=== PATIENT | male | born 1955 | race Caucasian/White ===

== ENCOUNTER → 2019-03-19 | Day surgery (SDC) | payer OTHER ==
[2019-03-15 11:37] LABS: BASOPHILS % 0.5 % (0.0-1.0); EOSINOPHILS # (AUTO) 0.1 (0.0-0.4); EOSINOPHILS % 1.6 % (0.0-6.0); HEMOGLOBIN 15.2 g/dL (14.0-18.0); LYMPHOCYTES % 23.6 % (18.0-39.1); MEAN CORPUSCULAR HEMOGLOBIN 31.8 pg (28-32); MEAN CORPUSCULAR HGB CONC 34.5 g/dL (31-35); MEAN CORPUSCULAR VOLUME 92.1 fL (81-99); MONOCYTES # (AUTO) 0.8 (0.2-0.8); MONOCYTES % 9.4 % (4.4-11.3); NEUTROPHILS # (AUTO) 5.6 (2.1-6.9); NEUTROPHILS % 64.7 % (38.7-80.0); PLATELET COUNT 213 x10e3/uL (140-360); RED BLOOD COUNT 4.78 x10e6/uL (4.3-5.7); RED CELL DISTRIBUTION WIDTH 12.5 % (11.7-14.4)
[~2019-03-19] MED LIST: ALDACTONE25 MG PO; ASPIRIN81 MG PO; CRESTOR10 MG PO; FENTANYL CITRATE/PF 100MCG/2 ML INJ ONE; METOPROLOL SUCC25 MG PO; MIDAZOLAM HCL 2 MG/2 ML VIAL ONE; PROPOFOL IV EMULSION 10 MG/ML 50 ML VIAL ONE; WARFARIN SODIUM6 MG PO
--- OUTSIDE RECORDS SUMMARY | 2019-03-19 07:07 | XMS REPORT ---
Author Author Admin, Index Organization [facility] Address Unknown Phone Unavailable Allergies, Adverse Reactions, Alerts Allergy Name Reaction Description Start Date Severity Status Provider No Known Allergies Nani Franco [employer] Conditions or Problems Problem Name Problem Code Onset Date Status Entry Date Provider Comment Standard Description Annotate Staghorn renal calculus 592.0 Active Darin Frye MD Calculus of kidney left side, impassable, outside CT, advised f/u with Urologist Hyperuricemia 790.6 Active Bryon Bruner MD (res) Other abnormal blood chemistry Rheumatoid factor, positive 790.99 Active Bryon Bruner MD (res) Other nonspecific findings on examination of blood BMI 33.0-33.9 Active Radha Lai MD Body Mass Index 33.0-33.9, adult Encounter for screening for other suspected endocrine disorder Active Radha Lai MD Hx of disorder, tobacco use V15.82 Active Radha Lai MD Personal history of tobacco use Hx of gout NOS V12.2 Active Radha Lai MD Personal history of endocrine, metabolic, and immunity disorders Hx of thyroidectomy V45.79 Active Radha Lai MD Other acquired absence of organ Joint pain, hand 719.44 Active Radha Lai MD Pain in joint involving hand Obesity Active Radha Lai MD Obesity, unspecified Restless leg syndrome 333.94 Active Radha Lai MD Restless legs syndrome (RLS) Screening for other and unspecified cardiovascular conditions V81.2 Active Radha Lai MD Screening for other and unspecified cardiovascular conditions Medication List Medication Instructions Start Date Stop Date Generic Name NDC Status Provider Patient Instruction FAMOTIDINE 20 MG ORAL TABLET one tablet by mouth daily FAMOTIDINE 20 MG ORAL TABLET 203995 FAMOTIDINE Inactive INDOMETHACIN 50 MG ORAL CAPSULE 1 tablet by mouth 3 times a day as needed INDOMETHACIN 50 MG ORAL CAPSULE 810430 INDOMETHACIN Inactive PREDNISONE 10 MG ORAL TABLET Take 2 tab By Mouth daily for x 5 days, 1 tab By Mouth daily x 5 days, 1/2 tab by Mouth daily x 5 days PREDNISONE 10 MG ORAL TABLET 095612 PREDNISONE Inactive FAMOTIDINE 20 MG ORAL TABLET one tablet by mouth daily FAMOTIDINE 33374825652 No Longer Active Darin Frye MD Active INDOMETHACIN 50 MG ORAL CAPSULE 1 tablet by mouth 3 times a day as needed INDOMETHACIN 80031237948 No Longer Active Darin Frye MD Active PREDNISONE 10 MG ORAL TABLET Take 2 tab By Mouth daily for x 5 days, 1 tab By Mouth daily x 5 days, 1/2 tab by Mouth daily x 5 days PREDNISONE 68126461048 No Longer Active Nayeli Dunham MD (res) Active Vital Signs Date Name Value Unit Range Description blood pressure, diastolic, second observation 74 mm[Hg] BP crisostomo blood pressure, diastolic 74 mm[Hg] BP crisostomo blood pressure, systolic, second observation 118 mm[Hg] BP sys blood pressure, systolic 118 mm[Hg] BP sys height E&M 72 [in_us] Bdy height pulse rate E&M 78 /min Heart rate respiratory rate E&M 16 /min Resp rate temperature E&M 98.7 [degF] Body temperature weight E&M 248 [lb_av] Weight Measured blood pressure, diastolic 82 mm[Hg] BP crisostomo blood pressure, systolic 127 mm[Hg] BP sys height E&M 72 [in_us] Bdy height pulse rate E&M 87 /min Heart rate respiratory rate E&M 16 /min Resp rate temperature E&M 98.4 [degF] Body temperature weight E&M 239.20 [lb_av] Weight Measured blood pressure, diastolic, second observation 86 mm[Hg] BP crisostomo blood pressure, diastolic 86 mm[Hg] BP crisostomo blood pressure, systolic, second observation 133 mm[Hg] BP sys blood pressure, systolic 133 mm[Hg] BP sys height E&M 72 [in_us] Bdy height pulse rate E&M 75 /min Heart rate pulse rate #2 78 Heart rate respiratory rate E&M 21 /min Resp rate temperature E&M 98.4 [degF] Body temperature weight E&M 245.60 [lb_av] Weight Measured Diagnostic Results Date Name Value Unit Range Description Lab Report: Comp. Metabolic Panel (14), Lipid Panel, TSH, Rheumatoid Art ... - Chemistry uric acid, serum 10.3 mg/dL 3.7-8.6 calcium, serum 9.5 mg/dL 8.7-10.2 urea nitrogen, blood 10 mg/dL 6-24 urea nitrogen/creatinine ratio, serum 11 9-20 Lab Report: Comp. Metabolic Panel (14), Lipid Panel, TSH, Rheumatoid Art ... - Serology rheumatoid factor 42.1 [iU]/mL 0.0-13.9 Lab Report: Comp. Metabolic Panel (14), Lipid Panel, TSH, Rheumatoid Art ... - Genetics/fertility eGFR if 101 mL/min/1.73m2 >59 Lab Report: Comp. Metabolic Panel (14), Lipid Panel, TSH, Rheumatoid Art ... - Chemistry creatinine, serum 0.95 mg/dL 0.76-1.27 chloride, serum 102 mmol/L 96-106 triglyceride, serum, fasting 223 mg/dL 0-149 Estimated Glomerular Filtration Rate (calc) 87 mL/min/1.73m2 >59 carbon dioxide, venous blood 25 mmol/L 18-29 protein, total, serum 7.5 g/dL 6.0-8.5 sodium, serum 140 mmol/L 594-933 5161/03/20 HDL cholesterol, serum 40 mg/dL >39 Lab Report: Comp. Metabolic Panel (14), Lipid Panel, TSH, Rheumatoid Art ... - Hematology erythrocyte sedimentation rate 2 mm/h 0-30 Lab Report: Comp. Metabolic Panel (14), Lipid Panel, TSH, Rheumatoid Art ... - Chemistry albumin/globulin ratio, serum 1.5 1.2-2.2 alkaline phosphatase, serum 87 U/L 39-117 alanine aminotransferase (SGPT), serum 23 U/L 0-44 LDL cholesterol, serum 132 mg/dL 0-99 cholesterol, serum 217 mg/dL 006-246 5425/03/20 bilirubin, serum, total 0.3 mg/dL 0.0-1.2 potassium, serum 4.7 mmol/L 3.5-5.2 blood glucose, random 92 mg/dL 65-99 globulin, serum 3.0 1.5-4.5 aspartate aminotransferase (SGOT), serum 15 U/L 0-40 thyroid stimulating hormone, serum 1.490 u[iU]/mL 0.450-4.500 albumin, serum 4.5 g/dL 3.5-5.5 very low density lipoproteins 45 mg/dL 5-40 Encounters Date Encounter Provider Code Facility 18:00:24 CDT Est Patient Exp Problem - 40024 Darin Frye MD CPT-40002 [facility] 16:26:07 CDT Est Patient Exp Problem - 99397 Nayeli Dunham MD (res) CPT-74108 [facility] 11:41:25 CDT New Patient Detailed - 65836 Bryon Bruner MD (res) CPT-35206 [facility] Procedures Code Procedure Name Date Entry Date Standard Description CPT-76711 Glucose Stick 11:41:29 CDT
--- OUTSIDE RECORDS SUMMARY | 2019-03-19 07:07 | XMS REPORT ---
Author Author [facility] Address Unknown Phone Unavailable Care Team Providers Care Vice Investigator Name Role Phone JUAN M GONSALEZ Unavailable Unavailable JUAN LUIS VYAS Unavailable Unavailable LAW KAY Unavailable Unavailable Problems This patient has no known problems. Allergies, Adverse Reactions, Alerts This patient has no known allergies or adverse reactions. Medications This patient has no known medications. Results Test Description Test Time Test Comments Text Results Atomic Results Result Comments ANAEROBIC CULTURE 2019-01-17 19:50:00 CULTURE (BEAKER) (test ditt=5298) <1+ Propionibacterium acnes SURGICALLY OBTAINED CULTURE + GRAM [id number] 11:41:00* Test Item Value Reference Range Comments CULTURE (BEAKER) (test dbwc=8893) No growth GRAM STAIN RESULT (BEAKER) (test lqkw=9050) No WBCs GRAM STAIN RESULT (BEAKER) (test ivcw=237873) No organisms seen BASIC METABOLIC [id number] 09:12:00* Test Item Value Reference Range Comments SODIUM (BEAKER) (test yvkj=188) 139 meq/L 136-145 POTASSIUM (BEAKER) (test shhn=696) 3.4 meq/L 3.5-5.1 CHLORIDE (BEAKER) (test lppk=468) 105 meq/L 98-107 CO2 (BEAKER) (test befe=674) 26 meq/L 22-29 BLOOD UREA NITROGEN (BEAKER) (test jbcz=165) 8 mg/dL 7-21 CREATININE (BEAKER) (test hcgu=022) 1.04 mg/dL 0.57-1.25 GLUCOSE RANDOM (BEAKER) (test zxfy=504) 87 mg/dL 70-105 CALCIUM (BEAKER) (test pieh=050) 8.6 mg/dL 8.4-10.2 EGFR (BEAKER) (test tdyx=1493) 73 mL/min/1.73 sq m ESTIMATED GFR IS NOT ACCURATE CREATININE CLEARANCE IN PREDICTING GLOMERULAR FILTRATION RATE. ESTIMATED GFR IS NOT APPLICABLE FOR DIALYSIS PATIENTS. HEMOGLOBIN AND [id number] 06:34:00* Test Item Value Reference Range Comments HEMOGLOBIN (BEAKER) (test edit=756) 12.8 GM/DL 13.7-17.5 HEMATOCRIT (BEAKER) (test tqyt=360) 37.8 % 40.1-51.0 PROTHROMBIN TIME/[id number] 06:33:00* Test Item Value Reference Range Comments PROTIME (BEAKER) (test gesj=288) 14.4 seconds 11.9-14.2 INR (BEAKER) (test jbkw=144) 1.2 <=5.9 Effective 10/03/2018: PT Reference Range ChangeNew: 11.9-14.2 Previous: 11.7-14. 7RECOMMENDED COUMADIN/WARFARIN INR THERAPY RANGESSTANDARD DOSE: 2.0-3.0 Include s: PROPHYLAXIS for venous thrombosis, systemic embolization; TREATMENT for venou s thrombosis and/or pulmonary embolus.HIGH RISK: Target INR is 2.5-3.5 for patie nts wiht mechanical heart valves.BASIC METABOLIC [id number] 07:57:00* Test Item Value Reference Range Comments SODIUM (BEAKER) (test ymhj=643) 142 meq/L 136-145 POTASSIUM (BEAKER) (test pitc=132) 3.7 meq/L 3.5-5.1 CHLORIDE (BEAKER) (test zusl=402) 108 meq/L 98-107 CO2 (BEAKER) (test mztz=652) 23 meq/L 22-29 BLOOD UREA NITROGEN (BEAKER) (test dzxb=452) 10 mg/dL 7-21 CREATININE (BEAKER) (test ksgl=170) 1.02 mg/dL 0.57-1.25 GLUCOSE RANDOM (BEAKER) (test ghnz=941) 91 mg/dL 70-105 CALCIUM (BEAKER) (test miis=041) 8.7 mg/dL 8.4-10.2 EGFR (BEAKER) (test cfoo=7140) 74 mL/min/1.73 sq m ESTIMATED GFR IS NOT ACCURATE CREATININE CLEARANCE IN PREDICTING GLOMERULAR FILTRATION RATE. ESTIMATED GFR IS NOT APPLICABLE FOR DIALYSIS PATIENTS. PROTHROMBIN TIME/[id number] 06:21:00* Test Item Value Reference Range Comments PROTIME (BEAKER) (test vouk=736) 13.9 seconds 11.9-14.2 INR (BEAKER) (test hpjw=665) 1.1 <=5.9 Effective 10/03/2018: PT Reference Range ChangeNew: 11.9-14.2 Previous: 11.7-14. 7RECOMMENDED COUMADIN/WARFARIN INR THERAPY RANGESSTANDARD DOSE: 2.0-3.0 Include s: PROPHYLAXIS for venous thrombosis, systemic embolization; TREATMENT for venou s thrombosis and/or pulmonary embolus.HIGH RISK: Target INR is 2.5-3.5 for patie nts [facility] mechanical heart valves.HEMOGLOBIN AND [id number] 06:12:00* Test Item Value Reference Range Comments HEMOGLOBIN (BEAKER) (test ycrj=781) 12.4 GM/DL 13.7-17.5 HEMATOCRIT (BEAKER) (test olos=457) 38.2 % 40.1-51.0 PROTHROMBIN TIME/[id number] 17:21:00* Test Item Value Reference Range Comments PROTIME (BEAKER) (test fntv=704) 13.3 seconds 11.9-14.2 INR (BEAKER) (test yqgk=161) 1.1 <=5.9 Effective 10/03/2018: PT Reference Range ChangeNew: 11.9-14.2 Previous: 11.7-14. 7RECOMMENDED COUMADIN/WARFARIN INR THERAPY RANGESSTANDARD DOSE: 2.0-3.0 Include s: PROPHYLAXIS for venous thrombosis, systemic embolization; TREATMENT for venou s thrombosis and/or pulmonary embolus.HIGH RISK: Target INR is 2.5-3.5 for patie [facility] mechanical heart valves.CT, ABDOMEN - PELVIS, RENAL STONE EVAL, WITHOUT IV [id number] 08:54:00Reason for exam:->POSTOP PCNL 3FINAL REPORT CT abdomen and pelvis without contrast History: Flank pain, status post lithotripsy Comparison: none Technique: serial axial imaging was performed without intravenous contrast as per departmental protocol. Multiplanar images are reconstructed and reviewed when indicated. This CT e xamination is performed using one or more of the following dose reduction techni ques: Automated exposure control, adjustment of the mA and /or kV according to p atient size, and/or use of iterative reconstruction technique. Findings:Evaluat ion limited by lack of intravenous contrast. Bilateral lower lobe dependent at electasis. Grossly unremarkable appearance of unenhanced liver, gallbladder, ventura creas, spleen, and adrenal glands. There are foci of air surrounding the left kidney, consistent with history of recent intervention. A left ureteral stent ap pears appropriately positioned. No calcifications are seen along the stent cours e. Mild residual left hydronephrosis. Areas of hyperattenuation within the super ior aspect of the left renal collecting system are consistent with blood product s related to recent procedure. No urinary calculus is identified. A Taylor estelle ter decompresses the bladder. No small or large bowel obstruction. No apparent bowel wall thickening. No findings to indicate acute appendicitis. No free fl uid or adenopathy. No aggressive osseous lesion. Impression: 1. Post surgical changes related to recent left-sided lithotripsy and ureteral stent placement. T he ureteral stent appears appropriately position.2. Mild residual left hydroneph rosis.3. No urinary calculus is visualized. Signed: Bj Watsonort Danuta ified Date/Time: 01/09/2019 08:54:36 Reading Location: [facility] Diagnostic Imaging Reading Room - [place] [id number] Electronically signed by: BJ WATSON MD o n 01/09/2019 08:54 AM MELODY DEJESUS IN OR/30 MINUTE [id number] 06:48:00 Reason for exam:->PCNLFINAL REPORT A fluoroscopic unit was utilized for a procedure performed in the operating room. No interpretation was requested. Please refer to the operative report regarding findings. Please refer to PACS for patient radiation dose information. Signed: JR Mackenzie Robert MDReport Verified Date/Time: 01/09/2019 06:48:27 Reading Location: [facility] C013 Neuro Reading Room C METABOLIC [id number] 04:45:00* Test Item Value Reference Range Comments SODIUM (BEAKER) (test aikf=707) 140 meq/L 136-145 POTASSIUM (BEAKER) (test gjal=211) 4.1 meq/L 3.5-5.1 CHLORIDE (BEAKER) (test zhxr=219) 108 meq/L 98-107 CO2 (BEAKER) (test fwgb=247) 23 meq/L 22-29 BLOOD UREA NITROGEN (BEAKER) (test mjtm=321) 10 mg/dL 7-21 CREATININE (BEAKER) (test jeth=936) 1.18 mg/dL 0.57-1.25 GLUCOSE RANDOM (BEAKER) (test xlsq=089) 135 mg/dL 70-105 CALCIUM (BEAKER) (test uthp=573) 8.5 mg/dL 8.4-10.2 EGFR (BEAKER) (test wylm=5308) 63 mL/min/1.73 sq m ESTIMATED GFR IS NOT ACCURATE CREATININE CLEARANCE IN PREDICTING GLOMERULAR FILTRATION RATE. ESTIMATED GFR IS NOT APPLICABLE FOR DIALYSIS PATIENTS. HEMOGLOBIN AND [id number] 04:28:00* Test Item Value Reference Range Comments HEMOGLOBIN (BEAKER) (test hzsi=312) 13.7 GM/DL 13.7-17.5 HEMATOCRIT (BEAKER) (test cvsu=903) 40.9 % 40.1-51.0 BASIC METABOLIC [id number] 18:52:00* Test Item Value Reference Range Comments SODIUM (BEAKER) (test zegy=778) 140 meq/L 136-145 POTASSIUM (BEAKER) (test plrl=827) 4.1 meq/L 3.5-5.1 CHLORIDE (BEAKER) (test rcob=600) 110 meq/L 98-107 CO2 (BEAKER) (test qtra=339) 23 meq/L 22-29 BLOOD UREA NITROGEN (BEAKER) (test ocnb=962) 9 mg/dL 7-21 CREATININE (BEAKER) (test gibn=626) 1.12 mg/dL 0.57-1.25 GLUCOSE RANDOM (BEAKER) (test avot=326) 107 mg/dL 70-105 CALCIUM (BEAKER) (test yymt=315) 8.3 mg/dL 8.4-10.2 EGFR (BEAKER) (test iceq=2729) 67 mL/min/1.73 sq m ESTIMATED GFR IS NOT ACCURATE CREATININE CLEARANCE IN PREDICTING GLOMERULAR FILTRATION RATE. ESTIMATED GFR IS NOT APPLICABLE FOR DIALYSIS PATIENTS. HEMOGLOBIN AND [id number] 18:30:00* Test Item Value Reference Range Comments HEMOGLOBIN (BEAKER) (test uwoj=416) 14.9 GM/DL 13.7-17.5 HEMATOCRIT (BEAKER) (test nuxw=425) 44.7 % 40.1-51.0 POCT-GLUCOSE [id number] 18:08:00* Test Item Value Reference Range Comments POC-GLUCOSE METER (BEAKER) (test gabm=0248) 117 mg/dL 70-110 TESTED AT [facility] [address] [facility] [address] RAD, CHEST, 1 VIEW, NON [id number] 17:35:00Reason for exam:->status post PCNL Iintraop)Should this be performed at the bedside?->YesFINAL REPORT TECHNIQUE: Frontal view of the chest. INDICATION: 63-year-old man status post PCNL. COMPARISON: Chest radiographs 04/28/2018. FINDINGS: LINES/TUBES: The tip of an endotracheal tube tip terminates approximately 5.5 cm above the harmeet. LUNGS: Low lung volumes. No consolidation or pulmonary edema. PLEURA: No pneumothorax or significant pleural effusion. Unchanged biapical pleural thickening. HEART AND MEDIASTINUM: The cardiomediastinal silhouette appears prominent, at least in part due to AP technique and low lung volumes. SOFT TISSUES AND BONES: Unremarkable. IMPRESSION:No acute cardiopulmonary a bnormalities. Signed: Jacob Macedo MDRepjess Verified Date/Time: 01/08/2019 1 7:35:32 Reading Location: [address] Consult Reading Room Electronically si gned by: JACOB MACEDO MD on 01/08/2019 05:35 PM URINE [id number] 10:58:00* Test Item Value Reference Range Comments CULTURE (BEAKER) (test mcps=5269) No growth BASIC METABOLIC [id number] 05:31:00* Test Item Value Reference Range Comments SODIUM (BEAKER) (test xxbm=417) 141 meq/L 136-145 POTASSIUM (BEAKER) (test igpd=792) 3.7 meq/L 3.5-5.1 CHLORIDE (BEAKER) (test qccg=624) 110 meq/L 98-107 CO2 (BEAKER) (test gviv=935) 26 meq/L 22-29 BLOOD UREA NITROGEN (BEAKER) (test nfks=475) 9 mg/dL 7-21 CREATININE (BEAKER) (test ulld=148) 0.92 mg/dL 0.57-1.25 GLUCOSE RANDOM (BEAKER) (test xyeg=915) 101 mg/dL 70-105 CALCIUM (BEAKER) (test nyil=895) 8.2 mg/dL 8.4-10.2 EGFR (BEAKER) (test ypwj=5580) 84 mL/min/1.73 sq m ESTIMATED GFR IS NOT ACCURATE CREATININE CLEARANCE IN PREDICTING GLOMERULAR FILTRATION RATE. ESTIMATED GFR IS NOT APPLICABLE FOR DIALYSIS PATIENTS. [id number] 05:22:00* Test Item Value Reference Range Comments PARTIAL THROMBOPLASTIN TIME (BEAKER) (test qkxw=085) 89.2 seconds 22.5-36.0 CBC W/PLT COUNT & AUTO [id number] 05:14:00* Test Item Value Reference Range Comments WHITE BLOOD CELL COUNT (BEAKER) (test bjqj=532) 8.4 K/ L 3.5-10.5 RED BLOOD CELL COUNT (BEAKER) (test eqzk=350) 4.11 M/ L 4.63-6.08 HEMOGLOBIN (BEAKER) (test xmvh=555) 13.1 GM/DL 13.7-17.5 HEMATOCRIT (BEAKER) (test amku=651) 39.0 % 40.1-51.0 MEAN CORPUSCULAR VOLUME (BEAKER) (test jfzo=201) 94.9 fL 79.0-92.2 MEAN CORPUSCULAR HEMOGLOBIN (BEAKER) (test tiad=808) 31.9 pg 25.7-32.2 MEAN CORPUSCULAR HEMOGLOBIN CONC (BEAKER) (test gvuz=254) 33.6 GM/DL 32.3-36.5 RED CELL DISTRIBUTION WIDTH (BEAKER) (test oyxr=116) 12.1 % 11.6-14.4 PLATELET COUNT (BEAKER) (test uvra=701) 176 K/CU MM 150-450 MEAN PLATELET VOLUME (BEAKER) (test iuvy=401) 10.3 fL 9.4-12.4 NUCLEATED RED BLOOD CELLS (BEAKER) (test glcm=278) 0 /100 WBC 0-0 NEUTROPHILS RELATIVE PERCENT (BEAKER) (test mjrv=041) 66 % LYMPHOCYTES RELATIVE PERCENT (BEAKER) (test hthq=429) 23 % MONOCYTES RELATIVE PERCENT (BEAKER) (test nqym=844) 8 % EOSINOPHILS RELATIVE PERCENT (BEAKER) (test ljwh=927) 2 % BASOPHILS RELATIVE PERCENT (BEAKER) (test jsvo=874) 0 % NEUTROPHILS ABSOLUTE COUNT (BEAKER) (test alca=151) 5.55 K/ L 1.78-5.38 LYMPHOCYTES ABSOLUTE COUNT (BEAKER) (test pozn=555) 1.92 K/ L 1.32-3.57 MONOCYTES ABSOLUTE COUNT (BEAKER) (test rhjy=247) 0.71 K/ L 0.30-0.82 EOSINOPHILS ABSOLUTE COUNT (BEAKER) (test fwdd=955) 0.20 K/ L 0.04-0.54 BASOPHILS ABSOLUTE COUNT (BEAKER) (test fnfz=549) 0.03 K/ L 0.01-0.08 IMMATURE GRANULOCYTES-RELATIVE PERCENT (BEAKER) (test dvdg=0062) 0 % 0-1 [id number] 20:00:00* Test Item Value Reference Range Comments PARTIAL THROMBOPLASTIN TIME (BEAKER) (test bxap=982) 89.4 seconds 22.5-36.0 [id number] 13:04:00* Test Item Value Reference Range Comments PARTIAL THROMBOPLASTIN TIME (BEAKER) (test gsvm=879) 105.9 seconds 22.5-36.0 [id number] 06:56:00* Test Item Value Reference Range Comments PARTIAL THROMBOPLASTIN TIME (BEAKER) (test duok=112) 90.8 seconds 22.5-36.0 [id number] 00:15:00* Test Item Value Reference Range Comments PARTIAL THROMBOPLASTIN TIME (BEAKER) (test hjij=985) 66.6 seconds 22.5-36.0 6 hours after starting heparin infusion and as indicated per sliding scaleAPTT 2019-01-06 17:52:00* Test Item Value Reference Range Comments PARTIAL THROMBOPLASTIN TIME (BEAKER) (test qdkq=889) 29.6 seconds 22.5-36.0 Prior to initiating heparinCBC (HEMOGRAM ONLY)2019-01-06 17:43:00* Test Item Value Reference Range Comments WHITE BLOOD CELL COUNT (BEAKER) (test glur=229) 10.3 K/ L 3.5-10.5 RED BLOOD CELL COUNT (BEAKER) (test stbw=600) 4.63 M/ L 4.63-6.08 HEMOGLOBIN (BEAKER) (test dcao=654) 14.9 GM/DL 13.7-17.5 HEMATOCRIT (BEAKER) (test dugm=351) 43.6 % 40.1-51.0 MEAN CORPUSCULAR VOLUME (BEAKER) (test hubi=258) 94.2 fL 79.0-92.2 MEAN CORPUSCULAR HEMOGLOBIN (BEAKER) (test savn=213) 32.2 pg 25.7-32.2 MEAN CORPUSCULAR HEMOGLOBIN CONC (BEAKER) (test mpet=331) 34.2 GM/DL 32.3-36.5 RED CELL DISTRIBUTION WIDTH (BEAKER) (test sone=606) 11.9 % 11.6-14.4 PLATELET COUNT (BEAKER) (test nhwr=582) 206 K/CU MM 150-450 MEAN PLATELET VOLUME (BEAKER) (test ridc=893) 10.0 fL 9.4-12.4 NUCLEATED RED BLOOD CELLS (BEAKER) (test lsdv=981) 0 /100 WBC 0-0 POCT-LACTIC ACID, [id number] 14:16:00* Test Item Value Reference Range Comments POC-LACTIC ACID, VENOUS (BEAKER) (test ugaj=0879) 0.9 mmol/L 0.9-1.7 TESTED AT [facility] [address] [facility] [address] URINALYSIS W/ [id number] 13:45:00* Test Item Value Reference Range Comments COLOR (BEAKER) (test rdok=780) Yellow CLARITY (BEAKER) (test ndzr=682) Clear SPECIFIC GRAVITY UA (BEAKER) (test pcmz=588) 1.012 1.001-1.035 PH UA (BEAKER) (test zzyt=763) 5.5 5.0-8.0 PROTEIN UA (BEAKER) (test dmqg=036) Negative Negative GLUCOSE UA (BEAKER) (test xcsb=890) Negative Negative KETONES UA (BEAKER) (test gpol=044) Negative Negative BILIRUBIN UA (BEAKER) (test vkwl=604) Negative Negative BLOOD UA (BEAKER) (test egcv=691) Small Negative NITRITE UA (BEAKER) (test wval=617) Negative Negative LEUKOCYTE ESTERASE UA (BEAKER) (test kzno=717) Negative Negative UROBILINOGEN UA (BEAKER) (test sxzm=866) 0.2 mg/dL 0.2-1.0 RBC UA (BEAKER) (test soss=288) 20 /HPF WBC UA (BEAKER) (test ukwh=037) < /HPF MUCUS (BEAKER) (test jxov=5688) Occasional SOURCE(BEAKER) (test dvai=1496) BASIC METABOLIC [id number] 13:26:00* Test Item Value Reference Range Comments SODIUM (BEAKER) (test xjvk=024) 139 meq/L 136-145 POTASSIUM (BEAKER) (test ktmd=975) 3.8 meq/L 3.5-5.1 CHLORIDE (BEAKER) (test sebd=353) 106 meq/L 98-107 CO2 (BEAKER) (test pjyz=176) 24 meq/L 22-29 BLOOD UREA NITROGEN (BEAKER) (test zgyw=063) 15 mg/dL 7-21 CREATININE (BEAKER) (test ehoo=567) 1.18 mg/dL 0.57-1.25 GLUCOSE RANDOM (BEAKER) (test xwyw=739) 143 mg/dL 70-105 CALCIUM (BEAKER) (test nnmm=910) 9.4 mg/dL 8.4-10.2 EGFR (BEAKER) (test aayg=7527) 63 mL/min/1.73 sq m ESTIMATED GFR IS NOT ACCURATE CREATININE CLEARANCE IN PREDICTING GLOMERULAR FILTRATION RATE. ESTIMATED GFR IS NOT APPLICABLE FOR DIALYSIS PATIENTS. PT/[id number] 13:21:00* Test Item Value Reference Range Comments PROTIME (BEAKER) (test oakm=949) 15.1 seconds 11.9-14.2 INR (BEAKER) (test cucq=806) 1.3 <=5.9 PARTIAL THROMBOPLASTIN TIME (BEAKER) (test zkkm=984) 29.8 seconds 22.5-36.0 Effective 10/03/2018: PT Reference Range ChangeNew: 11.9-14.2 Previous: 11.7-14. 7RECOMMENDED COUMADIN/WARFARIN INR THERAPY RANGESSTANDARD DOSE: 2.0-3.0 Include s: PROPHYLAXIS for venous thrombosis, systemic embolization; TREATMENT for venou s thrombosis and/or pulmonary embolus.HIGH RISK: Target INR is 2.5-3.5 for patie nts wiht mechanical heart valves.CBC W/PLT COUNT & AUTO [id number] 13:12:00* Test Item Value Reference Range Comments WHITE BLOOD CELL COUNT (BEAKER) (test ciru=533) 8.3 K/ L 3.5-10.5 RED BLOOD CELL COUNT (BEAKER) (test rnud=156) 4.68 M/ L 4.63-6.08 HEMOGLOBIN (BEAKER) (test wwwh=831) 15.0 GM/DL 13.7-17.5 HEMATOCRIT (BEAKER) (test htlx=238) 43.0 % 40.1-51.0 MEAN CORPUSCULAR VOLUME (BEAKER) (test cddl=998) 91.9 fL 79.0-92.2 MEAN CORPUSCULAR HEMOGLOBIN (BEAKER) (test sujs=372) 32.1 pg 25.7-32.2 MEAN CORPUSCULAR HEMOGLOBIN CONC (BEAKER) (test kvcu=188) 34.9 GM/DL 32.3-36.5 RED CELL DISTRIBUTION WIDTH (BEAKER) (test tftu=411) 11.9 % 11.6-14.4 PLATELET COUNT (BEAKER) (test jvzf=018) 219 K/CU MM 150-450 MEAN PLATELET VOLUME (BEAKER) (test bbdd=325) 10.0 fL 9.4-12.4 NUCLEATED RED BLOOD CELLS (BEAKER) (test soxq=373) 0 /100 WBC 0-0 NEUTROPHILS RELATIVE PERCENT (BEAKER) (test slil=732) 71 % LYMPHOCYTES RELATIVE PERCENT (BEAKER) (test ikmm=067) 20 % MONOCYTES RELATIVE PERCENT (BEAKER) (test peuc=986) 7 % EOSINOPHILS RELATIVE PERCENT (BEAKER) (test zeql=518) 1 % BASOPHILS RELATIVE PERCENT (BEAKER) (test rvvn=653) 0 % NEUTROPHILS ABSOLUTE COUNT (BEAKER) (test eqws=876) 5.87 K/ L 1.78-5.38 LYMPHOCYTES ABSOLUTE COUNT (BEAKER) (test nkcy=691) 1.66 K/ L 1.32-3.57 MONOCYTES ABSOLUTE COUNT (BEAKER) (test kjqa=706) 0.58 K/ L 0.30-0.82 EOSINOPHILS ABSOLUTE COUNT (BEAKER) (test pipj=262) 0.12 K/ L 0.04-0.54 BASOPHILS ABSOLUTE COUNT (BEAKER) (test wjpf=380) 0.03 K/ L 0.01-0.08 IMMATURE GRANULOCYTES-RELATIVE PERCENT (BEAKER) (test ycss=1875) 0 % 0-1 BASIC METABOLIC [id number] 07:12:00* Test Item Value Reference Range Comments SODIUM (BEAKER) (test ogbc=675) 138 meq/L 136-145 POTASSIUM (BEAKER) (test odqy=439) 3.8 meq/L 3.5-5.1 CHLORIDE (BEAKER) (test voam=876) 110 meq/L 98-107 CO2 (BEAKER) (test bqyf=362) 22 meq/L 22-29 BLOOD UREA NITROGEN (BEAKER) (test pqva=016) 10 mg/dL 7-21 CREATININE (BEAKER) (test qbzq=988) 0.83 mg/dL 0.57-1.25 GLUCOSE RANDOM (BEAKER) (test kbgp=843) 102 mg/dL 70-105 CALCIUM (BEAKER) (test ccjg=377) 8.9 mg/dL 8.4-10.2 EGFR (BEAKER) (test uhxd=7632) 95 mL/min/1.73 sq m ESTIMATED GFR IS NOT ACCURATE CREATININE CLEARANCE IN PREDICTING GLOMERULAR FILTRATION RATE. ESTIMATED GFR IS NOT APPLICABLE FOR DIALYSIS PATIENTS. PROTHROMBIN TIME/[id number] 06:30:00* Test Item Value Reference Range Comments PROTIME (BEAKER) (test ynbw=318) 14.2 seconds 11.7-14.7 INR (BEAKER) (test cpru=950) 1.1 <=5.9 RECOMMENDED COUMADIN/WARFARIN INR THERAPY RANGESSTANDARD DOSE: 2.0 - 3.0 Inclu kaiser: PROPHYLAXIS for venous thrombosis, systemic embolization; TREATMENT for shaista ous thrombosis and/or pulmonary embolus.HIGH RISK: Target INR is 2.5-3.5 for pat ients with mechanical heart valves.[id number] 06:30:00* Test Item Value Reference Range Comments PARTIAL THROMBOPLASTIN TIME (BEAKER) (test vgmd=967) 35.7 seconds 22.5-36.0 PLATELET [id number] 06:12:00* Test Item Value Reference Range Comments PLATELET COUNT (BEAKER) (test zxpi=837) 195 K/CU MM 150-450 Baseline and daily starting prior to initiation of heparin infusionCBC (HEMOGRAM ONLY)2018-08-10 06:12:00* Test Item Value Reference Range Comments WHITE BLOOD CELL COUNT (BEAKER) (test lrpv=268) 6.1 K/ L 3.5-10.5 RED BLOOD CELL COUNT (BEAKER) (test cckt=898) 3.63 M/ L 4.63-6.08 HEMOGLOBIN (BEAKER) (test mnry=037) 11.6 GM/DL 13.7-17.5 HEMATOCRIT (BEAKER) (test tzbp=652) 34.2 % 40.1-51.0 MEAN CORPUSCULAR VOLUME (BEAKER) (test xmtw=916) 94.2 fL 79.0-92.2 MEAN CORPUSCULAR HEMOGLOBIN (BEAKER) (test kiba=637) 32.0 pg 25.7-32.2 MEAN CORPUSCULAR HEMOGLOBIN CONC (BEAKER) (test sdjr=217) 33.9 GM/DL 32.3-36.5 RED CELL DISTRIBUTION WIDTH (BEAKER) (test zluk=170) 12.9 % 11.6-14.4 PLATELET COUNT (BEAKER) (test aefk=389) 195 K/CU MM 150-450 MEAN PLATELET VOLUME (BEAKER) (test fixm=667) 10.0 fL 9.4-12.4 NUCLEATED RED BLOOD CELLS (BEAKER) (test zsgo=799) 0 /100 WBC 0-0 [id number] 00:54:00* Test Item Value Reference Range Comments PARTIAL THROMBOPLASTIN TIME (BEAKER) (test kias=384) 28.3 seconds 22.5-36.0 Prior to initiating ppihnagRBYI-[id number] 14:17:00* Test Item Value Reference Range Comments ACTIVATED CLOTTING TIME (BEAKER) (test nnjl=937) 351 sec TESTED AT [facility] [address] [place] [id number] BASIC METABOLIC [id number] 08:05:00* Test Item Value Reference Range Comments SODIUM (BEAKER) (test zomp=781) 141 meq/L 136-145 POTASSIUM (BEAKER) (test rshj=366) 3.9 meq/L 3.5-5.1 CHLORIDE (BEAKER) (test ctek=493) 109 meq/L 98-107 CO2 (BEAKER) (test nroj=368) 26 meq/L 22-29 BLOOD UREA NITROGEN (BEAKER) (test sifz=335) 13 mg/dL 7-21 CREATININE (BEAKER) (test ihjj=190) 0.88 mg/dL 0.57-1.25 GLUCOSE RANDOM (BEAKER) (test wvhp=758) 93 mg/dL 70-105 CALCIUM (BEAKER) (test qxvc=515) 9.9 mg/dL 8.4-10.2 EGFR (BEAKER) (test ofdj=4332) 88 mL/min/1.73 sq m ESTIMATED GFR IS NOT ACCURATE CREATININE CLEARANCE IN PREDICTING GLOMERULAR FILTRATION RATE. ESTIMATED GFR IS NOT APPLICABLE FOR DIALYSIS PATIENTS. PROTHROMBIN TIME/[id number] 08:00:00* Test Item Value Reference Range Comments PROTIME (BEAKER) (test lbgr=308) 13.9 seconds 11.7-14.7 INR (BEAKER) (test fsqi=570) 1.1 <=5.9 RECOMMENDED COUMADIN/WARFARIN INR THERAPY RANGESSTANDARD DOSE: 2.0 - 3.0 Inclu kaiser: PROPHYLAXIS for venous thrombosis, systemic embolization; TREATMENT for shaista ous thrombosis and/or pulmonary embolus.HIGH RISK: Target INR is 2.5-3.5 for pat ients with mechanical heart valves.Within 24 hours, if on CoumadinCBC W/PLT COUNT & AUTO [id number] 07:51:00* Test Item Value Reference Range Comments WHITE BLOOD CELL COUNT (BEAKER) (test zvtq=757) 5.4 K/ L 3.5-10.5 RED BLOOD CELL COUNT (BEAKER) (test fqxv=323) 3.82 M/ L 4.63-6.08 HEMOGLOBIN (BEAKER) (test jywg=602) 12.2 GM/DL 13.7-17.5 HEMATOCRIT (BEAKER) (test zpcn=201) 36.5 % 40.1-51.0 MEAN CORPUSCULAR VOLUME (BEAKER) (test vner=434) 95.5 fL 79.0-92.2 MEAN CORPUSCULAR HEMOGLOBIN (BEAKER) (test urao=903) 31.9 pg 25.7-32.2 MEAN CORPUSCULAR HEMOGLOBIN CONC (BEAKER) (test xjkc=741) 33.4 GM/DL 32.3-36.5 RED CELL DISTRIBUTION WIDTH (BEAKER) (test xequ=306) 12.8 % 11.6-14.4 PLATELET COUNT (BEAKER) (test pkgk=298) 200 K/CU MM 150-450 MEAN PLATELET VOLUME (BEAKER) (test rpyc=205) 9.8 fL 9.4-12.4 NUCLEATED RED BLOOD CELLS (BEAKER) (test sapz=033) 0 /100 WBC 0-0 NEUTROPHILS RELATIVE PERCENT (BEAKER) (test lxtk=335) 64 % LYMPHOCYTES RELATIVE PERCENT (BEAKER) (test lkuv=987) 20 % MONOCYTES RELATIVE PERCENT (BEAKER) (test wzei=905) 11 % EOSINOPHILS RELATIVE PERCENT (BEAKER) (test citr=603) 4 % BASOPHILS RELATIVE PERCENT (BEAKER) (test fqna=567) 1 % NEUTROPHILS ABSOLUTE COUNT (BEAKER) (test jiva=405) 3.49 K/ L 1.78-5.38 LYMPHOCYTES ABSOLUTE COUNT (BEAKER) (test ycsl=720) 1.08 K/ L 1.32-3.57 MONOCYTES ABSOLUTE COUNT (BEAKER) (test iaot=415) 0.57 K/ L 0.30-0.82 EOSINOPHILS ABSOLUTE COUNT (BEAKER) (test qdnk=785) 0.24 K/ L 0.04-0.54 BASOPHILS ABSOLUTE COUNT (BEAKER) (test epsd=943) 0.03 K/ L 0.01-0.08 IMMATURE GRANULOCYTES-RELATIVE PERCENT (BEAKER) (test qgbx=3058) 0 % 0-1 BLOOD [id number] 07:01:00* Test Item Value Reference Range Comments CULTURE (BEAKER) (test wdys=6547) No growth in 5 days BLOOD [id number] 07:01:00* Test Item Value Reference Range Comments CULTURE (BEAKER) (test melu=5887) No growth in 5 days URINE [id number] 08:46:00* Test Item Value Reference Range Comments CULTURE (BEAKER) (test lamu=3332) No growth URIC [id number] 15:53:00* Test Item Value Reference Range Comments URIC ACID (BEAKER) (test hkxt=185) 7.7 mg/dL 2.6-7.2 [id number] 13:38:00* Test Item Value Reference Range Comments PARTIAL THROMBOPLASTIN TIME (BEAKER) (test ilpi=003) 89.0 seconds 22.5-36.0 [id number] 06:52:00* Test Item Value Reference Range Comments MAGNESIUM (BEAKER) (test gzvz=631) 1.9 mg/dL 1.6-2.6 BASIC METABOLIC [id number] 06:52:00* Test Item Value Reference Range Comments SODIUM (BEAKER) (test prpa=349) 136 meq/L 136-145 POTASSIUM (BEAKER) (test kdyc=517) 4.1 meq/L 3.5-5.1 CHLORIDE (BEAKER) (test eymm=767) 104 meq/L 98-107 CO2 (BEAKER) (test euqc=116) 23 meq/L 22-29 BLOOD UREA NITROGEN (BEAKER) (test lczx=679) 10 mg/dL 7-21 CREATININE (BEAKER) (test wrpl=304) 0.97 mg/dL 0.57-1.25 GLUCOSE RANDOM (BEAKER) (test otpk=240) 106 mg/dL 70-105 CALCIUM (BEAKER) (test bibw=033) 9.7 mg/dL 8.4-10.2 EGFR (BEAKER) (test qfzy=0771) 79 mL/min/1.73 sq m ESTIMATED GFR IS NOT ACCURATE CREATININE CLEARANCE IN PREDICTING GLOMERULAR FILTRATION RATE. ESTIMATED GFR IS NOT APPLICABLE FOR DIALYSIS PATIENTS. [id number] 06:48:00* Test Item Value Reference Range Comments PARTIAL THROMBOPLASTIN TIME (BEAKER) (test qcmd=619) 107.0 seconds 22.5-36.0 While on warfarin.PROTHROMBIN TIME/[id number] 06:42:00* Test Item Value Reference Range Comments PROTIME (BEAKER) (test haxv=783) 14.3 seconds 11.7-14.7 INR (BEAKER) (test vgob=901) 1.1 <=5.9 RECOMMENDED COUMADIN/WARFARIN INR THERAPY RANGESSTANDARD DOSE: 2.0 - 3.0 Inclu kaiser: PROPHYLAXIS for venous thrombosis, systemic embolization; TREATMENT for shaista ous thrombosis and/or pulmonary embolus.HIGH RISK: Target INR is 2.5-3.5 for pat ients with mechanical heart valves.While on warfarin.CBC (HEMOGRAM ONLY) 2018-04-29 06:26:00* Test Item Value Reference Range Comments WHITE BLOOD CELL COUNT (BEAKER) (test pifu=915) 12.6 K/ L 3.5-10.5 RED BLOOD CELL COUNT (BEAKER) (test qarg=901) 4.06 M/ L 4.63-6.08 HEMOGLOBIN (BEAKER) (test izqc=293) 12.7 GM/DL 13.7-17.5 HEMATOCRIT (BEAKER) (test xkga=339) 37.8 % 40.1-51.0 MEAN CORPUSCULAR VOLUME (BEAKER) (test dlzw=684) 93.1 fL 79.0-92.2 MEAN CORPUSCULAR HEMOGLOBIN (BEAKER) (test oavt=027) 31.3 pg 25.7-32.2 MEAN CORPUSCULAR HEMOGLOBIN CONC (BEAKER) (test qcxb=707) 33.6 GM/DL 32.3-36.5 RED CELL DISTRIBUTION WIDTH (BEAKER) (test ljvb=208) 11.9 % 11.6-14.4 PLATELET COUNT (BEAKER) (test gzyh=603) 208 K/CU MM 150-450 MEAN PLATELET VOLUME (BEAKER) (test hwve=513) 9.4 fL 9.4-12.4 NUCLEATED RED BLOOD CELLS (BEAKER) (test mgcj=891) 0 /100 WBC 0-0 [id number] 01:05:00* Test Item Value Reference Range Comments PARTIAL THROMBOPLASTIN TIME (BEAKER) (test ddii=372) 79.1 seconds 22.5-36.0 [id number] 18:19:00* Test Item Value Reference Range Comments PARTIAL THROMBOPLASTIN TIME (BEAKER) (test xjus=390) 49.6 seconds 22.5-36.0 RAD, CHEST, 2 [id number] 16:50:00Reason for exam:->FeverShould this be performed at the bedside?->YesFINAL REPORT Chest, two views and right foot. CLINICAL HISTORY: Fever. COMPARISON STUDY: April 27, 2018. FINDINGS: The cardiac size is unremarkable. No focal pulmonary opacity, pleural effusion or pneumothorax is seen. Degenerative changes are noted. Three views of the right foot demonstrate no evidence of fracture, malalignment or effusion. A calcaneal spur is seen. Degenerative changes are seen. IMPRESSION:1. No acute abnormality seen. Signed: Thanh Valladares Verified Date/Time: 04/28/2018 16:50:00 Reading Location: [address] Ortho Consult Reading Room , FOOT, MIN 3 VIEWS, [id number] 16:50:00Reason for exam:->Rt big toe swelling, ? goutFINAL REPORT Chest, two views and right foot. CLINICAL HISTORY: Fever. COMPARISON STUDY: April 27, 2018. FINDINGS: The cardiac size is unremarkable. No focal pulmonary opacity, pleural effusion or pneumothorax is seen. Degenerative changes are noted. Three views of the right foot demonstrate no evidence of fracture, malalignment or effusion. A calcaneal spur is seen. Degenerative changes are seen. IMPRESSION:1. No acute abnormality seen. Signed: Thanh Valladares Verified Date/Time: 04/28/2018 16:50:00 Reading Location: [facility] C013 Ortho Consult Reading Room 2018-04-28 11:49:00* Test Item Value Reference Range Comments PARTIAL THROMBOPLASTIN TIME (BEAKER) (test ocah=404) 48.8 seconds 22.5-36.0 PROTHROMBIN TIME/[id number] 11:48:00* Test Item Value Reference Range Comments PROTIME (BEAKER) (test fldf=083) 13.8 seconds 11.7-14.7 INR (BEAKER) (test zaao=594) 1.1 <=5.9 RECOMMENDED COUMADIN/WARFARIN INR THERAPY RANGESSTANDARD DOSE: 2.0 - 3.0 Inclu kaiser: PROPHYLAXIS for venous thrombosis, systemic embolization; TREATMENT for shaista ous thrombosis and/or pulmonary embolus.HIGH RISK: Target INR is 2.5-3.5 for pat ients with mechanical heart valves.BASIC METABOLIC [id number] 06:09:00* Test Item Value Reference Range Comments SODIUM (BEAKER) (test xylj=957) 136 meq/L 136-145 POTASSIUM (BEAKER) (test kdvv=026) 3.7 meq/L 3.5-5.1 CHLORIDE (BEAKER) (test fxlu=694) 104 meq/L 98-107 CO2 (BEAKER) (test yokg=296) 22 meq/L 22-29 BLOOD UREA NITROGEN (BEAKER) (test mqod=337) 8 mg/dL 7-21 CREATININE (BEAKER) (test vgkj=009) 0.90 mg/dL 0.57-1.25 GLUCOSE RANDOM (BEAKER) (test vsvz=843) 108 mg/dL 70-105 CALCIUM (BEAKER) (test wssp=250) 8.6 mg/dL 8.4-10.2 EGFR (BEAKER) (test nnvn=3168) 86 mL/min/1.73 sq m ESTIMATED GFR IS NOT ACCURATE CREATININE CLEARANCE IN PREDICTING GLOMERULAR FILTRATION RATE. ESTIMATED GFR IS NOT APPLICABLE FOR DIALYSIS PATIENTS. CBC (HEMOGRAM ONLY)2018-04-28 05:22:00* Test Item Value Reference Range Comments WHITE BLOOD CELL COUNT (BEAKER) (test mban=848) 10.8 K/ L 3.5-10.5 RED BLOOD CELL COUNT (BEAKER) (test jlms=917) 3.86 M/ L 4.63-6.08 HEMOGLOBIN (BEAKER) (test bzba=617) 12.3 GM/DL 13.7-17.5 HEMATOCRIT (BEAKER) (test xwjf=234) 36.2 % 40.1-51.0 MEAN CORPUSCULAR VOLUME (BEAKER) (test iuxu=987) 93.8 fL 79.0-92.2 MEAN CORPUSCULAR HEMOGLOBIN (BEAKER) (test atxt=630) 31.9 pg 25.7-32.2 MEAN CORPUSCULAR HEMOGLOBIN CONC (BEAKER) (test cjwa=691) 34.0 GM/DL 32.3-36.5 RED CELL DISTRIBUTION WIDTH (BEAKER) (test xwpr=172) 12.2 % 11.6-14.4 PLATELET COUNT (BEAKER) (test izbd=859) 202 K/CU MM 150-450 MEAN PLATELET VOLUME (BEAKER) (test dbtz=281) 9.8 fL 9.4-12.4 NUCLEATED RED BLOOD CELLS (BEAKER) (test uacs=557) 0 /100 WBC 0-0 [id number] 04:39:00* Test Item Value Reference Range Comments PARTIAL THROMBOPLASTIN TIME (BEAKER) (test yluv=856) 42.9 seconds 22.5-36.0 CBC W/PLT COUNT & AUTO [id number] 17:13:00* Test Item Value Reference Range Comments WHITE BLOOD CELL COUNT (BEAKER) (test poox=399) 11.3 K/ L 3.5-10.5 RED BLOOD CELL COUNT (BEAKER) (test gmft=983) 3.96 M/ L 4.63-6.08 HEMOGLOBIN (BEAKER) (test qwxy=414) 12.4 GM/DL 13.7-17.5 HEMATOCRIT (BEAKER) (test oipk=941) 36.7 % 40.1-51.0 MEAN CORPUSCULAR VOLUME (BEAKER) (test qmav=226) 92.7 fL 79.0-92.2 MEAN CORPUSCULAR HEMOGLOBIN (BEAKER) (test lxmc=068) 31.3 pg 25.7-32.2 MEAN CORPUSCULAR HEMOGLOBIN CONC (BEAKER) (test vyux=312) 33.8 GM/DL 32.3-36.5 RED CELL DISTRIBUTION WIDTH (BEAKER) (test mads=627) 12.1 % 11.6-14.4 PLATELET COUNT (BEAKER) (test kcbq=361) 206 K/CU MM 150-450 MEAN PLATELET VOLUME (BEAKER) (test xsqt=301) 9.7 fL 9.4-12.4 NUCLEATED RED BLOOD CELLS (BEAKER) (test fjfo=383) 0 /100 WBC 0-0 NEUTROPHILS RELATIVE PERCENT (BEAKER) (test vlvd=125) 76 % LYMPHOCYTES RELATIVE PERCENT (BEAKER) (test mkxv=129) 12 % MONOCYTES RELATIVE PERCENT (BEAKER) (test bvya=690) 9 % EOSINOPHILS RELATIVE PERCENT (BEAKER) (test mvit=725) 2 % BASOPHILS RELATIVE PERCENT (BEAKER) (test xyoh=093) 0 % NEUTROPHILS ABSOLUTE COUNT (BEAKER) (test iqdk=103) 8.59 K/ L 1.78-5.38 LYMPHOCYTES ABSOLUTE COUNT (BEAKER) (test skxs=555) 1.40 K/ L 1.32-3.57 MONOCYTES ABSOLUTE COUNT (BEAKER) (test mxsb=774) 1.05 K/ L 0.30-0.82 EOSINOPHILS ABSOLUTE COUNT (BEAKER) (test xrdp=747) 0.22 K/ L 0.04-0.54 BASOPHILS ABSOLUTE COUNT (BEAKER) (test htka=860) 0.01 K/ L 0.01-0.08 IMMATURE GRANULOCYTES-RELATIVE PERCENT (BEAKER) (test asph=2541) 0 % 0-1 [id number] 10:42:00* Test Item Value Reference Range Comments ACTIVATED CLOTTING TIME (BEAKER) (test glll=019) 120 sec TESTED AT [facility] [address] [facility] [address] RAD, CHEST, 1 VIEW, NON [id number] 07:45:00Reason for exam:->IABPFINAL REPORT RAD, CHEST, 1 VIEW, NON DEPT INDICATION: IABP COMPARISON: None FINDINGS: Portable frontal view of the chest. IMPRESSION: Support Lines: Intra-aortic balloon pump marker projects over the aortic arch. L ungs and pleura: Lungs are underinflated but clear. There is no pneumothorax or effusion.Heart and mediastinum: Prominence of the cardiac silhouette likely part ially magnified by technique.Additional findings: None. Signed: JR Mackenzie Robert MDReport Verified Date/Time: 04/27/2018 07:45:10 Reading Location: [address] Neuro Reading Room [id number] 07:38:00* Test Item Value Reference Range Comments PARTIAL THROMBOPLASTIN TIME (BEAKER) (test krts=078) 41.4 seconds 22.5-36.0 CBC (HEMOGRAM ONLY)2018-04-27 06:09:00* Test Item Value Reference Range Comments WHITE BLOOD CELL COUNT (BEAKER) (test nuvu=223) 11.1 K/ L 3.5-10.5 RED BLOOD CELL COUNT (BEAKER) (test noio=308) 3.86 M/ L 4.63-6.08 HEMOGLOBIN (BEAKER) (test sief=387) 12.4 GM/DL 13.7-17.5 HEMATOCRIT (BEAKER) (test hhyj=682) 36.4 % 40.1-51.0 MEAN CORPUSCULAR VOLUME (BEAKER) (test mgdf=327) 94.3 fL 79.0-92.2 MEAN CORPUSCULAR HEMOGLOBIN (BEAKER) (test wcnh=381) 32.1 pg 25.7-32.2 MEAN CORPUSCULAR HEMOGLOBIN CONC (BEAKER) (test hvho=965) 34.1 GM/DL 32.3-36.5 RED CELL DISTRIBUTION WIDTH (BEAKER) (test dlyy=838) 12.3 % 11.6-14.4 PLATELET COUNT (BEAKER) (test juma=325) 190 K/CU MM 150-450 MEAN PLATELET VOLUME (BEAKER) (test ejzt=134) 10.1 fL 9.4-12.4 NUCLEATED RED BLOOD CELLS (BEAKER) (test suqn=832) 0 /100 WBC 0-0 [id number] 05:14:00* Test Item Value Reference Range Comments MAGNESIUM (BEAKER) (test vbpc=420) 2.0 mg/dL 1.6-2.6 BASIC METABOLIC [id number] 05:14:00* Test Item Value Reference Range Comments SODIUM (BEAKER) (test oawe=263) 137 meq/L 136-145 POTASSIUM (BEAKER) (test kyjn=627) 3.8 meq/L 3.5-5.1 CHLORIDE (BEAKER) (test tdna=067) 105 meq/L 98-107 CO2 (BEAKER) (test zqxl=131) 24 meq/L 22-29 BLOOD UREA NITROGEN (BEAKER) (test qoba=650) 9 mg/dL 7-21 CREATININE (BEAKER) (test lxav=724) 0.99 mg/dL 0.57-1.25 GLUCOSE RANDOM (BEAKER) (test chfa=198) 119 mg/dL 70-105 CALCIUM (BEAKER) (test yips=621) 9.1 mg/dL 8.4-10.2 EGFR (BEAKER) (test zhju=2333) 77 mL/min/1.73 sq m ESTIMATED GFR IS NOT ACCURATE CREATININE CLEARANCE IN PREDICTING GLOMERULAR FILTRATION RATE. ESTIMATED GFR IS NOT APPLICABLE FOR DIALYSIS PATIENTS. [id number] 00:22:00* Test Item Value Reference Range Comments PARTIAL THROMBOPLASTIN TIME (BEAKER) (test hmnd=543) 40.0 seconds 22.5-36.0 BASIC METABOLIC [id number] 18:48:00* Test Item Value Reference Range Comments SODIUM (BEAKER) (test oohw=862) 137 meq/L 136-145 POTASSIUM (BEAKER) (test xngw=799) 3.8 meq/L 3.5-5.1 CHLORIDE (BEAKER) (test kslz=481) 106 meq/L 98-107 CO2 (BEAKER) (test eisx=809) 23 meq/L 22-29 BLOOD UREA NITROGEN (BEAKER) (test cbnf=175) 8 mg/dL 7-21 CREATININE (BEAKER) (test bggt=249) 0.93 mg/dL 0.57-1.25 GLUCOSE RANDOM (BEAKER) (test ihdw=142) 131 mg/dL 70-105 CALCIUM (BEAKER) (test ooip=136) 9.7 mg/dL 8.4-10.2 EGFR (BEAKER) (test qmvs=9824) 83 mL/min/1.73 sq m ESTIMATED GFR IS NOT ACCURATE CREATININE CLEARANCE IN PREDICTING GLOMERULAR FILTRATION RATE. ESTIMATED GFR IS NOT APPLICABLE FOR DIALYSIS PATIENTS. [id number] 18:05:00* Test Item Value Reference Range Comments PARTIAL THROMBOPLASTIN TIME (BEAKER) (test ivjf=814) 74.0 seconds 22.5-36.0 Prior to initiating heparinPLATELET [id number] 18:02:00* Test Item Value Reference Range Comments PLATELET COUNT (BEAKER) (test jgra=879) 211 K/CU MM 150-450 [id number] 14:56:00* Test Item Value Reference Range Comments ACTIVATED CLOTTING TIME (BEAKER) (test cswu=123) 505 sec TESTED AT [place] [address] [id number] 14:21:00* Test Item Value Reference Range Comments ACTIVATED CLOTTING TIME (BEAKER) (test ircr=055) 703 sec TESTED AT [place] [id number] 14:01:00* Test Item Value Reference Range Comments ACTIVATED CLOTTING TIME (BEAKER) (test wtnp=725) 246 sec TESTED AT [place] [id number] BASIC METABOLIC [id number] 07:49:00* Test Item Value Reference Range Comments SODIUM (BEAKER) (test zfbp=435) 137 meq/L 136-145 POTASSIUM (BEAKER) (test ehgi=185) 3.8 meq/L 3.5-5.1 CHLORIDE (BEAKER) (test nehi=191) 105 meq/L 98-107 CO2 (BEAKER) (test zwka=371) 28 meq/L 22-29 BLOOD UREA NITROGEN (BEAKER) (test oyya=230) 8 mg/dL 7-21 CREATININE (BEAKER) (test whce=830) 0.93 mg/dL 0.57-1.25 GLUCOSE RANDOM (BEAKER) (test xvva=710) 101 mg/dL 70-105 CALCIUM (BEAKER) (test hamh=050) 9.2 mg/dL 8.4-10.2 EGFR (BEAKER) (test tpef=1440) 83 mL/min/1.73 sq m ESTIMATED GFR IS NOT ACCURATE CREATININE CLEARANCE IN PREDICTING GLOMERULAR FILTRATION RATE. ESTIMATED GFR IS NOT APPLICABLE FOR DIALYSIS PATIENTS. PROTHROMBIN TIME/[id number] 07:45:00* Test Item Value Reference Range Comments PROTIME (BEAKER) (test ecbv=943) 14.2 seconds 11.7-14.7 INR (BEAKER) (test pclf=293) 1.1 <=5.9 RECOMMENDED COUMADIN/WARFARIN INR THERAPY RANGESSTANDARD DOSE: 2.0 - 3.0 Inclu kaiser: PROPHYLAXIS for venous thrombosis, systemic embolization; TREATMENT for shaista ous thrombosis and/or pulmonary embolus.HIGH RISK: Target INR is 2.5-3.5 for pat ients with mechanical heart valves.Within 24 hours, if on CoumadinCBC (HEMOGRAM ONLY)2018-04-26 07:34:00* Test Item Value Reference Range Comments WHITE BLOOD CELL COUNT (BEAKER) (test ceri=625) 10.6 K/ L 3.5-10.5 RED BLOOD CELL COUNT (BEAKER) (test bptn=066) 4.27 M/ L 4.63-6.08 HEMOGLOBIN (BEAKER) (test ebwt=529) 13.8 GM/DL 13.7-17.5 HEMATOCRIT (BEAKER) (test stax=658) 40.5 % 40.1-51.0 MEAN CORPUSCULAR VOLUME (BEAKER) (test zubq=591) 94.8 fL 79.0-92.2 MEAN CORPUSCULAR HEMOGLOBIN (BEAKER) (test pfgf=938) 32.3 pg 25.7-32.2 MEAN CORPUSCULAR HEMOGLOBIN CONC (BEAKER) (test gqpc=733) 34.1 GM/DL 32.3-36.5 RED CELL DISTRIBUTION WIDTH (BEAKER) (test rwrf=808) 12.3 % 11.6-14.4 PLATELET COUNT (BEAKER) (test zsuv=045) 203 K/CU MM 150-450 MEAN PLATELET VOLUME (BEAKER) (test pqrf=493) 9.5 fL 9.4-12.4 NUCLEATED RED BLOOD CELLS (BEAKER) (test cwjd=170) 0 /100 WBC 0-0 CT, CTA [id number] 18:27:00Addendum BeginsREPORT STATUS:A Addendum: I agree with the previously described non vascular findings. Signed: Zachary Mark MDReport Verified Date/Time: 04/18/2018 18:27:56 Reading Location: [place] [address] Angio Body Reading RoomAddendum EndsFINAL REPORT CT angiography of the thoracoabdominal aorta and pelvic arteries, 18 April 2018 INDICATION: This is a 62 year old male with a diagnosis of PAD, presents for assessment of the thoracoabdominal aorta. This study is performed in an attempt to avoid an invasive procedure. TECHNIQUE: Spiral acquisition before and during intravenous contrast administration using a GE multidetector CT scanner. Images were obtained before and during the dynamic passage of intravenous contrast material. Multi-planar 3-D volume-rendering reconstruction was performed using an independent workstation interactively by the interpreting physician as well as the 3-D specialist for optimal visualization of the thoracoabdominal aorta, the pelvic arteries as well as its proximal branches. Please refer to the contrast sheet scanned in the EPIC system for the amount and route of contrast given. This exam was performed according to our departmental dose-optimisation programme, which includes automated exposure control, adjustment of the mA and/or kV according to patient size and/or use of iterative reconstruction technique. Dose modulation, iterative reconstruction, and/or weight based adjustment of the mA/kV was utilized to reduce the radiation dose to as low as reasonably achievable. Contrast enhancement is slightly suboptimal in the pelvic level, however, interpretation can be performed, and therefore no further injection was given to minimize radiation and contrast exposure. FINDINGS: VASCULAR:- The central pulmonary artery is normal in rashad susy. There is no evidence of central pulmonary artery embolism. The cardiac shekhar mbers demonstrate normal atrioventricular and ventriculoarterial concordance, an d systemic and pulmonary venous return. Left ventricle is normal in size. No per icardial effusion is identified. However, hypodensity is identified in left vent ricular apex, and tiny calcification is seen in the tip of the left atrial appen dage, suggestive of presence of left ventricular apical thrombus. The acuity of this finding cannot be commented upon. Coronary artery origins are normal and d iffuse coronary artery calcification identified in the mid and distal LAD territ ory. At the juncture of the proximal/mid RCA is likely occluded. Calcification i s seen in the LCx territory. There is scattered calcification seen at the level of the aortic root, with scattered calcification seen at the level of the desce nding thoracic aorta. There is noncalcific atherosclerosis identified at the lev el of the aortic arch, extending into the descending thoracic aorta. The thickne ss of the atheroma, in the proximal descending thoracic aorta, at image 73 is ap proximately 3 mm. The abdominal aorta is also remarkable for scattered calcific and noncalcific atherosclerosis. Overall, no aneurysmal dilation is seen through out the thoracoabdominal aorta. There is no evidence of acute aortic pathology, specifically, there is no dissection, intramural haematoma, or contained rupture . The arch vessel branching pattern is normal and the visualised arch vessels a re widely patent proximally. The left common carotid artery arises from the inno minate artery, common variant. Noncalcific atherosclerosis seen circumferentiall y in the proximal left subclavian artery with only luminal irregularities identi fied. Similar finding is seen in the takeoff of the left common carotid artery a s well as in the innominate artery. Quantitative dimensions of the aorta are as follows: 3.6 x 3.4 cm at the sinuses of Valsalva (the sino-tubular junction is p reserved); 2.9 cm at the proximal ascending thoracic aorta; 3.0 cm at the mid a scending aorta; 2.9 cm at the distal ascending aorta; 2.7 cm at the mid transve rse arch; 2.9 cm at the proximal descending aorta; 2.5 cm at the mid descending aorta; 2.4 cm at the diaphragmatic hiatus. In the abdomen, the aorta measures 2.1 cm at the mesenteric segment; 2.1 cm at the renal segment,; and 1.6 cm at t he aortic bifurcation. The common iliac, external iliac, common femoral, and t he visualized superficial femoral arteries, bilaterally, are widely patent with no obstructive lesion identified; despite slightly suboptimal enhancement. The c oeliac axis, SMA are widely patent. Replaced right hepatic artery is seen, commo n variant. The KANE is patent. There are single left and right renal arteries kody ntified that are widely patent. Single left and right renal veins are seen drain ing normally into the IVC. NON-VASCULAR: The visualised thyroid gland appears un remarkable. The chest wall and mediastinum has no acute abnormalities identified . Small lymph nodes are seen, considered nonspecific in nature. No pericardial e ffusion is identified. In the lung windows, no endobronchial lesion is seen and no pleural effusions identified. Dependent changes are seen in the lung bases. M inimal paraseptal emphysematous changes are identified. Dependent changes are se en in the lung bases. Some subsegmental atelectatic changes are noted. Tiny nonc alcified juxtapleural nodular opacity is seen in the peripheral aspect of the le ft lung, image 92, measure at most 2 mm in diameter, considered nonspecific in n ature due to its small size, less than 6 mm. Overall, no suspicious pulmonary no dule is identified. In the abdomen, the liver and spleen appears unremarkable. T he liver edge is smooth. No abnormal enhancing structure is identified. The gall bladder, and adrenal glands are unremarkable. Some fatty infiltration of the ventura creas is identified. No acute renal pathology is seen and no hydronephrosis or p erirenal fluid collections identified. Minimal cortical scarring is noted. In th e precontrast series, large stones identified in the left renal pelvis, image 72 , measure 3.1 x 1.7 cm in diameter. No other stone is identified in the urinary system. No hydroureter is appreciated. Bowel is not well assessed by CT angiogra phy as enteric contrast is not given. No obvious bowel dilation is identified. B ilateral fat-containing inguinal hernia is noted. The appendix appears unremarka ble. The prostate gland is minimally prominent punctate calcification identified . The bladder is not distended. No free air or free fluid seen abdomen and pelvi s and no significant retroperitoneal adenopathy is identified. In the bony windo ws, no acute bony pathology is seen. Only minimal degenerative changes are noted . CONCLUSIONS: 1. No aortic aneurysm or ectasia is identified in the entire th oracoabdominal aorta. There is no evidence of acute aortic pathology, specifical ly, there is no dissection, intramural hematoma, or contained rupture. However, there is scattered calcifications seen in the ascending thoracic aorta, and in the transverse arch, descending thoracic aorta. Besides the presence of scattere d calcific atherosclerosis, there is also a degree of mild circumferential nonca lcific atherosclerosis identified extending into the takeoff of the arch vessel. No hanging atherosclerosis is seen. Mild atherosclerosis is identified in the a bdominal aorta. Quantitative dimension of the thoracoabdominal are as described above. 2. Left ventricular thrombus is identified in the apex, and at image 164, and measures 3.3 x 1.6 cm in diameter in the axial orientation, and there c ould be mild aneurysmal dilation in the left ventricular apex, there will be bet ter assessed by echocardiogram as only single phase CT data set was acquired in this current examination. Acuity of this finding difficult to comment upon. Cor onary artery calcification is identified in the LAD territory. In addition, at t he juncture of the proximal/mid RCA, there is likely focal occlusion identified. 3. No acute pulmonary pathology. Mild paraseptal emphysematous changes. No e vidence of central pulmonary artery embolism. 4. Other findings as described a amber, including large stone in the left renal pelvis. 5. An addendum will be dictated by the Cytotechnologist Supervisor Radiologist regarding the nonvascular findings. Baylee d: Jesus Palmer Verified Date/Time: 04/18/2018 14:17:22 Reading Lo cation: [facility] B1 P047 Cardiology MRI , CTA, [id number] 18:27:00Addendum BeginsREPORT STATUS:A Addendum: I agree with the previously described non vascular findings. Signed: Zachary Mark Ve rified Date/Time: 04/18/2018 18:27:56 Reading Location: [facility] P048 Angio Body Reading RoomAddendum EndsFINAL REPORT CT angiography of t he thoracoabdominal aorta and pelvic arteries, 18 April 2018 INDICATION: Miky tubbs is a 62 year old male with a diagnosis of PAD, presents for assessment of the thoracoabdominal aorta. This study is performed in an attempt to avoid an invas lee procedure. TECHNIQUE: Spiral acquisition before and during intravenous contr ast administration using a [employer] multidetector CT scanner. Images were obtained bef ore and during the dynamic passage of intravenous contrast material. Multi-plan ar 3-D volume-rendering reconstruction was performed using an independent workst ation interactively by the interpreting physician as well as the 3-D specialist for optimal visualization of the thoracoabdominal aorta, the pelvic arteries as well as its proximal branches. Please refer to the contrast sheet scanned in the EPIC system for the amount and route of contrast given. This exam was performed according to our departmental dose-optimisation programme, which includes autom ated exposure control, adjustment of the mA and/or kV according to patient size and/or use of iterative reconstruction technique. Dose modulation, iterative rec onstruction, and/or weight based adjustment of the mA/kV was utilized to reduce the radiation dose to as low as reasonably achievable. Contrast enhancement is s lightly suboptimal in the pelvic level, however, interpretation can be performed , and therefore no further injection was given to minimize radiation and contras t exposure. FINDINGS: VASCULAR:- The central pulmonary artery is normal in rashad susy. There is no evidence of central pulmonary artery embolism. The cardiac shekhar mbers demonstrate normal atrioventricular and ventriculoarterial concordance, an d systemic and pulmonary venous return. Left ventricle is normal in size. No per icardial effusion is identified. However, hypodensity is identified in left vent ricular apex, and tiny calcification is seen in the tip of the left atrial appen dage, suggestive of presence of left ventricular apical thrombus. The acuity of this finding cannot be commented upon. Coronary artery origins are normal and d iffuse coronary artery calcification identified in the mid and distal LAD territ ory. At the juncture of the proximal/mid RCA is likely occluded. Calcification i s seen in the LCx territory. There is scattered calcification seen at the level of the aortic root, with scattered calcification seen at the level of the desce nding thoracic aorta. There is noncalcific atherosclerosis identified at the lev el of the aortic arch, extending into the descending thoracic aorta. The thickne ss of the atheroma, in the proximal descending thoracic aorta, at image 73 is ap proximately 3 mm. The abdominal aorta is also remarkable for scattered calcific and noncalcific atherosclerosis. Overall, no aneurysmal dilation is seen through out the thoracoabdominal aorta. There is no evidence of acute aortic pathology, specifically, there is no dissection, intramural haematoma, or contained rupture . The arch vessel branching pattern is normal and the visualised arch vessels a re widely patent proximally. The left common carotid artery arises from the inno minate artery, common variant. Noncalcific atherosclerosis seen circumferentiall y in the proximal left subclavian artery with only luminal irregularities identi fied. Similar finding is seen in the takeoff of the left common carotid artery a s well as in the innominate artery. Quantitative dimensions of the aorta are as follows: 3.6 x 3.4 cm at the sinuses of Valsalva (the sino-tubular junction is p reserved); 2.9 cm at the proximal ascending thoracic aorta; 3.0 cm at the mid a scending aorta; 2.9 cm at the distal ascending aorta; 2.7 cm at the mid transve rse arch; 2.9 cm at the proximal descending aorta; 2.5 cm at the mid descending aorta; 2.4 cm at the diaphragmatic hiatus. In the abdomen, the aorta measures 2.1 cm at the mesenteric segment; 2.1 cm at the renal segment,; and 1.6 cm at t he aortic bifurcation. The common iliac, external iliac, common femoral, and t he visualized superficial femoral arteries, bilaterally, are widely patent with no obstructive lesion identified; despite slightly suboptimal enhancement. The c oeliac axis, SMA are widely patent. Replaced right hepatic artery is seen, commo n variant. The KANE is patent. There are single left and right renal arteries kody ntified that are widely patent. Single left and right renal veins are seen drain ing normally into the IVC. NON-VASCULAR: The visualised thyroid gland appears un remarkable. The chest wall and mediastinum has no acute abnormalities identified . Small lymph nodes are seen, considered nonspecific in nature. No pericardial e ffusion is identified. In the lung windows, no endobronchial lesion is seen and no pleural effusions identified. Dependent changes are seen in the lung bases. M inimal paraseptal emphysematous changes are identified. Dependent changes are se en in the lung bases. Some subsegmental atelectatic changes are noted. Tiny nonc alcified juxtapleural nodular opacity is seen in the peripheral aspect of the le ft lung, image 92, measure at most 2 mm in diameter, considered nonspecific in n ature due to its small size, less than 6 mm. Overall, no suspicious pulmonary no dule is identified. In the abdomen, the liver and spleen appears unremarkable. T he liver edge is smooth. No abnormal enhancing structure is identified. The gall bladder, and adrenal glands are unremarkable. Some fatty infiltration of the ventura creas is identified. No acute renal pathology is seen and no hydronephrosis or p erirenal fluid collections identified. Minimal cortical scarring is noted. In th e precontrast series, large stones identified in the left renal pelvis, image 72 , measure 3.1 x 1.7 cm in diameter. No other stone is identified in the urinary system. No hydroureter is appreciated. Bowel is not well assessed by CT angiogra phy as enteric contrast is not given. No obvious bowel dilation is identified. B ilateral fat-containing inguinal hernia is noted. The appendix appears unremarka ble. The prostate gland is minimally prominent punctate calcification identified . The bladder is not distended. No free air or free fluid seen abdomen and pelvi s and no significant retroperitoneal adenopathy is identified. In the bony windo ws, no acute bony pathology is seen. Only minimal degenerative changes are noted . CONCLUSIONS: 1. No aortic aneurysm or ectasia is identified in the entire th oracoabdominal aorta. There is no evidence of acute aortic pathology, specifical ly, there is no dissection, intramural hematoma, or contained rupture. However, there is scattered calcifications seen in the ascending thoracic aorta, and in the transverse arch, descending thoracic aorta. Besides the presence of scattere d calcific atherosclerosis, there is also a degree of mild circumferential nonca lcific atherosclerosis identified extending into the takeoff of the arch vessel. No hanging atherosclerosis is seen. Mild atherosclerosis is identified in the a bdominal aorta. Quantitative dimension of the thoracoabdominal are as described above. 2. Left ventricular thrombus is identified in the apex, and at image 164, and measures 3.3 x 1.6 cm in diameter in the axial orientation, and there c ould be mild aneurysmal dilation in the left ventricular apex, there will be bet ter assessed by echocardiogram as only single phase CT data set was acquired in this current examination. Acuity of this finding difficult to comment upon. Cor onary artery calcification is identified in the LAD territory. In addition, at t he juncture of the proximal/mid RCA, there is likely focal occlusion identified. 3. No acute pulmonary pathology. Mild paraseptal emphysematous changes. No e vidence of central pulmonary artery embolism. 4. Other findings as described a amber, including large stone in the left renal pelvis. 5. An addendum will be dictated by the Cytotechnologist Supervisor Radiologist regarding the nonvascular findings. 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 Comparison: None. Clinical History: 62 years old Male with known LV dysfunction and apical thrombus with evidence of significant coronary artery disease, involving 100% CT of mid LAD in 90% mid RCA stenosis, here for further evaluation for planning revascularization. Indication: This study is performed to assess myocardial damage, viability, and to quantitate left ventricular and valvular function. Technique: [employer] Achieva 1.5 [place] MRI scanner.* Turbo spin echo and gradient echo imaging for anatomic definition.* Dynamic cine i maging for cardiac chamber, wall-motion, and valvular analysis.* Flow quantifica tion sequences for hemodynamics.* T2 weighted STIR imaging (with triple IR prepa ration) for edema analysis.* Delayed gadolinium-enhancement analysis (inversion recovery gradient echo sequence) after injection of gadolinium-chelate (15 cc of Gadavist). RESULT: Potential study limitations: None. CHEST: The chest wall is unremarkable. The mediastinum appears normal. No significant adenopathy is i dentified. This study was not optimized to assess the lungs however, limited im aging reveals no gross abnormalities. The pulmonary arteries appear normal (main PA: 2.9 cm). The pericardium is unremarkable. VASCULAR:The aortic root is symme tric and normal in dimension. The sinotubular junction is preserved. The ascend ing thoracic aorta and aortic arch: Normal in course, caliber and contour. The arch vessel branching pattern demonstrates a common trunk of the innominate and left common carotid artery. The imaged arch branch vessels are patent proximal ly. The descending thoracic aorta: Normal in course, caliber and contour. Ther e is no acute aortic pathology, such as dissection, intramural hematoma, or cont ained rupture. CARDIAC CHAMBERS:The cardiac chambers have normal atrioventricula r and ventriculoarterial concordance, as well as normal systemic and pulmonary v enous return. Normal interatrial septum The interventricular septum appears int act. The cardiac chamber sizes are notable for mild biatrial enlargement. Left Ventricle:The left ventricle is mildly enlarged, and has mildly reduced systolic function. The left ventricular myocardium is normal in thickness. There are reg ional wall motion abnormalities involving, the apical septal, apical inferior, w hich are thinned and akinetic. The LV apex is aneurysmal and dyskinetic GDU=786 cc (normal 115-198 cc); UIQq=896 cc/m2 (normal 63-98 cc/m2).USU=833 cc (normal 30-75 cc); ESVi=61 cc/m2 (normal 16-38 cc/m2).Stroke hxawof=946 cc (normal 76- 132 cc); SVi=45 cc/m2 (normal 41-65 cc/m2).LVEF=43 % (normal 55-75%).Cardiac Output=7.1 l/min.; Cardiac Index=3.0 l/min/m2.LV agtv=465 gm (normal 108-184 gm ); LVMi=63 gm/m2 (normal 58-91 gm/m2). Delayed-enhancement imaging reveals del ayed-enhancement in an ischemic pattern. Specifically, transmural pattern invol ving the apical inferior, apical septal, and LV apex. Subendocardial pattern of delayed enhancement involving the apical anterior and lateral altamirano. Apical left ventricular thrombus is identified, measuring 3.0 x 1.9 cm. Scar score=14/68 (s alise-quantitative scar assessment was performed on a standard 17-segments model a s follows:0=no scar, 1=1-25% transmurality, 2=26-50% transmurality, 3=51-75% tra nsmurality, 4=greater than 75%; total scar score is generated out of a maximum o f 68 points). Transmurality index=3/17 (represents the number of segments with g reater than or equal to 51% transmurality). Right Ventricle:The right ventricle is normal in size and shape, and has normal systolic function on qualitative ass essment, where imaged. VALVES:The mitral valve is mildly thickened. There is tri vial imaged mitral regurgitation. The aortic valve is trileaflet. There is no i renita aortic regurgitation.Flow quantification through the ascending aorta:*Forw matteo volume: 109 cc/beat*Reverse volume: 3 cc/beat*Net forward volume: 106 cc/kareem t*Aortic regurgitant fraction: 3 % The tricuspid valve is structurally normal. There is trivial imaged tricuspid regurgitation. Flow quantification sequences t hrough the SVC and right upper lobe pulmonary vein reveal normal flow patterns c onsistent with normal right and normal left atrial pressures. ABDOMEN:Limited i maging through the upper abdomen reveals no abnormalities of the imaged organs. IMPRESSION: The constellation of findings is most suggestive of a dilated, isch emic cardiomyopathy with normal viability in present all of the arterial territo maninder except for the apical septal, apical inferior and LV apex. 1. Mildly dilate d left ventricle with mildly reduced left ventricular systolic function. (LVEF: 43%, LVEDVi: 106 cc/m2). There are regional wall motion abnormalities involving, the apical septal, apical inferior and LV apex, which are thinned and akinetic. 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 Apical left ventricular thrombus is i dentified, measuring 3.0 x 1.9 cm. 2. Delayed-enhancement imaging reveals delaye d-enhancement in an ischemic pattern. Specifically, transmural pattern of DHE i nvolving the apical inferior, apical septal, and LV apex. Subendocardial pattern of delayed enhancement involving the apical anterior and lateral altamirano. Scar sc ore=. Transmurality index=3/17. 3. Normal right ventricular size and systol ic function, on qualitative assessment. Mild biatrial enlargement. 4. No signifi cant valvular abnormalities. Signed: Law Kay MDReport Verified Date/Santiago e: 12/16/2017 15:42:13 Reading Location: [place] [address] Cardiology MRI Electr onically signed by: LAW KAY MD on 12/16/2017 03:42 PM POCT-CREATININE 2017-12-15 11:43:00* Test Item Value Reference Range Comments POC-CREATININE (BEAKER) (test rlnn=4555) 1.0 mg/dL 0.6-1.3 TESTED AT [facility] [address] [facility] [address] POC-EGFR (BEAKER) (test epyx=4941) 76 mL/min/1.73M2 BASIC METABOLIC [id number] 06:28:00* Test Item Value Reference Range Comments SODIUM (BEAKER) (test eiot=458) 137 meq/L 136-145 POTASSIUM (BEAKER) (test ihac=316) 3.9 meq/L 3.5-5.1 CHLORIDE (BEAKER) (test mdkm=884) 105 meq/L 98-107 CO2 (BEAKER) (test guxv=035) 24 meq/L 22-29 BLOOD UREA NITROGEN (BEAKER) (test mvpt=520) 13 mg/dL 7-21 CREATININE (BEAKER) (test cube=365) 1.05 mg/dL 0.57-1.25 GLUCOSE RANDOM (BEAKER) (test oijy=550) 99 mg/dL 70-105 CALCIUM (BEAKER) (test npwi=368) 9.3 mg/dL 8.4-10.2 EGFR (BEAKER) (test nenq=3496) 72 mL/min/1.73 sq m ESTIMATED GFR IS NOT ACCURATE CREATININE CLEARANCE IN PREDICTING GLOMERULAR FILTRATION RATE. ESTIMATED GFR IS NOT APPLICABLE FOR DIALYSIS PATIENTS. PROTHROMBIN [id number] 06:13:00* Test Item Value Reference Range Comments PROTIME (BEAKER) (test efkg=016) 16.6 seconds 11.7-14.7 INR (BEAKER) (test eisl=924) 1.3 <=5.9 RECOMMENDED COUMADIN/WARFARIN INR THERAPY RANGESSTANDARD DOSE: 2.0 - 3.0 Inclu kaiser: PROPHYLAXIS for venous thrombosis, systemic embolization; TREATMENT for shaista ous thrombosis and/or pulmonary embolus.HIGH RISK: Target INR is 2.5-3.5 for pat ients with mechanical heart valves.Within 24 hours, if on CoumadinCBC W/PLT COUNT & AUTO [id number] 06:06:00* Test Item Value Reference Range Comments WHITE BLOOD CELL COUNT (BEAKER) (test wyzy=838) 9.1 K/ L 3.5-10.5 RED BLOOD CELL COUNT (BEAKER) (test npct=541) 4.24 M/ L 4.63-6.08 HEMOGLOBIN (BEAKER) (test wxvy=966) 13.6 GM/DL 13.7-17.5 HEMATOCRIT (BEAKER) (test jmig=327) 39.2 % 40.1-51.0 MEAN CORPUSCULAR VOLUME (BEAKER) (test rrso=766) 92.5 fL 79.0-92.2 MEAN CORPUSCULAR HEMOGLOBIN (BEAKER) (test pmwj=716) 32.1 pg 25.7-32.2 MEAN CORPUSCULAR HEMOGLOBIN CONC (BEAKER) (test kzku=394) 34.7 GM/DL 32.3-36.5 RED CELL DISTRIBUTION WIDTH (BEAKER) (test tabs=268) 12.0 % 11.6-14.4 PLATELET COUNT (BEAKER) (test dczo=207) 224 K/CU MM 150-450 MEAN PLATELET VOLUME (BEAKER) (test nvov=122) 9.6 fL 9.4-12.4 NUCLEATED RED BLOOD CELLS (BEAKER) (test ebqo=624) 0 /100 WBC 0-0 NEUTROPHILS RELATIVE PERCENT (BEAKER) (test loyi=983) 67 % LYMPHOCYTES RELATIVE PERCENT (BEAKER) (test nike=808) 22 % MONOCYTES RELATIVE PERCENT (BEAKER) (test xuae=450) 8 % EOSINOPHILS RELATIVE PERCENT (BEAKER) (test dagz=957) 2 % BASOPHILS RELATIVE PERCENT (BEAKER) (test zjql=788) 0 % NEUTROPHILS ABSOLUTE COUNT (BEAKER) (test abcd=638) 6.03 K/ L 1.78-5.38 LYMPHOCYTES ABSOLUTE COUNT (BEAKER) (test baop=086) 1.99 K/ L 1.32-3.57 MONOCYTES ABSOLUTE COUNT (BEAKER) (test qfuc=378) 0.75 K/ L 0.30-0.82 EOSINOPHILS ABSOLUTE COUNT (BEAKER) (test ymex=619) 0.20 K/ L 0.04-0.54 BASOPHILS ABSOLUTE COUNT (BEAKER) (test ktjc=386) 0.04 K/ L 0.01-0.08 IMMATURE GRANULOCYTES-RELATIVE PERCENT (BEAKER) (test aqpl=8823) 0 % 0-1
--- OUTSIDE RECORDS SUMMARY | 2019-03-19 07:08 | XMS REPORT | Summary of Care ---
Author Author [facility] Organization [facility] Address Unknown Phone Unavailable Care Team Providers Care Upper Stitcher Name Role Phone Joe WestP PCP Reason for Visit * Reason Comments Cardiology Follow-up Encounter Details Care Team Description Date Type Department Law Carlton MD [address] [place] [address] Cardiology Follow-up 01/22/2019 Office Visit [facility] Cardiology [address] [facility] [address] [place] [address] Allergies No Known Allergiesdocumented as of this encounter (statuses as of 01/26/2019) Medications End Date Status Medication Sig Dispensed Refills Start Date Active famotidine (PEPCID) 20 MG 0 tablet 8 Active aspirin EC 81 MG Take 1 Tab by 100 Tab 0 TBECIndications: Coronary mouth daily. 9 artery disease involving [place] heart without angina pectoris, unspecified vessel or lesion type, Claudication of both lower extremities (HCCode), LV (left ventricular) mural thrombus without OH, PAD (peripheral artery disease) (HCCode) Active predniSONE (DELTASONE) 20 0 MG tablet 9 Active probenecid (BENEMID) 500 as needed. 0 MG tablet 9 Active Enoxaparin Sodium Inject 110 mg 5 Syringe 0 (LOVENOX) 120 MG/0.8ML into the skin 9 SOLN two times daily. Starting 08/06 with your last dose 08/08 in the Morning only. Active BRILINTA 90 MG TABS Take 90 mg by 60 Tab 3 04/02/201 mouth two 9 times daily. Active warfarin (COUMADIN) 7.5 Take 1 Tab by 30 Tab 5 MG tabletIndications: Hx mouth daily. 9 of blood clots Active metoprolol (LOPRESSOR) 25 TAKE 1/2 30 Tab 3 MG tablet (ONE-HALF) 9 TABLET BY MOUTH TWICE DAILY Active warfarin (COUMADIN) 5 MG Take 1 Tab by 30 Tab 5 tabletIndications: Hx of mouth daily. 9 blood clots Active Ascorbic Acid (VITAMIN C Take by 0 OR) mouth. Active Ferrous Odmryrbef-V-Gmbsy Take 65 mg by 0 Acid (IRON-C OR) mouth. Active rosuvastatin (CRESTOR) 10 TAKE 1 TABLET 30 Tab 6 MG tabletIndications: BY MOUTH ONCE 9 Coronary artery disease DAILY involving [place]ut heart without angina pectoris, unspecified vessel or lesion type, Claudication of both lower extremities (HCCode), LV (left ventricular) mural thrombus without [place], PAD (peripheral artery disease) (HCCode) Active spironolactone TAKE 1 TABLET 30 Tab 6 (ALDACTONE) 25 MG BY MOUTH ONCE 9 tabletIndications: DAILY Coronary artery disease involving [place]ut heart without angina pectoris, unspecified vessel or lesion type, LV (left ventricular) mural thrombus without OH Active levofloxacin (LEVAQUIN) Take 1 Tab by 14 Tab 0 500 MG tablet mouth daily. 9 02/11/2019 Active Tamsulosin HCl 0.4 MG Take 0.4 mg 0 CAPS by mouth 9 daily. Active Bismuth Subsalicylate Take by 0 (PEPTO-BISMOL OR) mouth two times daily. Active amoxicillin (AMOXIL) 500 Take 1,000 mg 0 mg capsule by mouth every 12 hours. For 14 days Active pantoprazole (PROTONIX) Take 40 mg by 0 40 MG tablet mouth two times daily. Active metronidazole (FLAGYL) Take 500 mg 0 500 MG tablet by mouth two times daily. documented as of this encounter (statuses as of 01/26/2019) Active Problems Problem Noted Date PAD (peripheral artery disease) (HCCode) 03/21/2018 Staghorn calculus 10/25/2017 Coronary artery disease Kidney stone Mural thrombus of left ventricle following OH (HCCode) documented as of this encounter (statuses as of 01/26/2019) Social History Date Tobacco Use Types Packs/Day Years Used Former Smoker Smokeless Tobacco: Never Used Drinks/Week oz/Week Comments Alcohol Use very seldom Yes Sex Assigned at Date Recorded Not on file Industry Job Start Date Occupation Not on file Not on file Not on file Travel End Travel History Travel Start No recent travel history available. documented as of this encounter Last Filed Vital Signs Reading Time Taken Comments Vital Sign 115/76 01/22/2019 8:23 AM CDT Blood Pressure 74 01/22/2019 8:23 AM CDT Pulse - - Temperature 16 01/22/2019 8:23 AM CDT Respiratory Rate 98% 01/22/2019 8:23 AM CDT Oxygen Saturation - - Inhaled Oxygen Concentration 106.6 kg (235 lb) 01/22/2019 8:23 AM CDT Weight 182.9 cm (6') 01/22/2019 8:23 AM CDT Height 31.87 01/22/2019 8:23 AM CDT Body Mass Index documented in this encounter Progress Notes * Law Carlton MD - 01/22/2019 8:00 AM CDT Chief Complaint Cardiology Follow-up History of Presenting Illness Joss Mcleod is a 63 y.o. male with a hx of staghorn calculus pending daisy gical removal who presents today for hospital follow up after tent placement in August 2018. 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 Reports occ asional LE edema today. He denies chest pain, SULLIV[place], palpitations, dizziness/synco pe. Family hx:father CABG x 3 in his 60's. at 72 from [place]. Social: Stopped smoking tobacco 5 years ago, uses vaporizer 11/23/2017 Today he presents s/p Echo which found an LV thrombus, apical hypokinesis and re duced EF in the 30-34%. He denies symptoms such as chest pain, dyspnea on exerti on, palpitations, LE edema, orthopnea or PND. No hx of OH or related symptoms in the past. 12/21/2017 Over the last couple of weeks he has felt more dizziness on exertion. He feels d reed when getting out of the car. He denies chest pain, BP at home is controlled at 119-125/80 Since wearing life vest he has experienced a rash over his mid and upper back, i t is itchy and hot. It has improved overall with washing vest, and putting aloch ol over it. He denies fevers. 02/20/2018 Joss Mcleod continues to have occasional chest pain and flank pain. He d enies palpitations, shortness of breath, lightheadedness, dizziness, syncope, or thopnea, PND or pedal edema. 11/13/2018 Joss Mcleod has no significant symptoms of chest pain, palpitations, johnny rtness of breath, lightheadedness, dizziness, syncope, orthopnea, PND or pedal e jeremy. - Stopped Brilinta and currently on Aspirin and Warfarin - recent echo showing mildly reduced LV thrombus with stable LV systolic functio n. Today Joss Mcleod has no significant symptoms of chest pain, palpitations, johnny rtness of breath, lightheadedness, dizziness, syncope, orthopnea, PND or pedal e jeremy. S/p Surgically removed Staghorn calculus. Uneventful. Restarted on warfarin with no further episodes of bleeding. Review of Systems Review of Systems Constitution: Negative for fever. Eyes: Negative for blurred vision, visual disturbance and visual halos. Cardiovascular: Positive for chest pain. Negative for claudication, cyanosis, dy spnea on exertion, irregular heartbeat, leg swelling, near-syncope, orthopnea, p alpitations, paroxysmal nocturnal dyspnea and syncope. Respiratory: Negative for cough, shortness of breath and sputum production. Musculoskeletal: Negative for back pain, joint swelling and muscle weakness. Gastrointestinal: Negative for abdominal pain, bowel incontinence, diarrhea and heartburn. Genitourinary: Positive for flank pain. Negative for bladder incontinence, hesit sruthi and urgency. Neurological: Negative for dizziness, focal weakness, headaches, light-headednes s and weakness. Psychiatric/Behavioral: Negative for altered mental status and depression. Past Medical History Past Medical History: Diagnosis Date Coronary artery disease Kidney stone Mural thrombus of left ventricle following OH (HCCode) Past Surgical History Past Surgical History: Procedure Laterality Date HX CORONARY ANGIOPLASTY WITH STENT PLACEMENT HX THYROID SURGERY HX URETER STENT PLACEMENT Family History Family History Problem Relation Name Age of Onset Heart Attack Father Current Outpatient Medications Current Outpatient Medications Medication Sig Dispense Refill amoxicillin (AMOXIL) 500 mg capsule Take 1,000 mg by mouth every 12 hours. F or 14 days Ascorbic Acid (VITAMIN C OR) Take by mouth. aspirin EC 81 MG TBEC Take 1 Tab by mouth daily. 100 Tab 0 Bismuth Subsalicylate (PEPTO-BISMOL OR) Take by mouth two times daily. BRILINTA 90 MG TABS Take 90 mg by mouth two times daily. (Patient not taking : Reported on 11/13/2018) 60 Tab 3 Enoxaparin Sodium (LOVENOX) 120 MG/0.8ML SOLN Inject 110 mg into the skin tw o times daily. Starting 4/ with your last dose 4/3 in the Morning only. 5 Syrin ge 0 famotidine (PEPCID) 20 MG tablet Ferrous Bklvuxeuu-Y-Mjorb Acid (IRON-C OR) Take 65 mg by mouth. levofloxacin (LEVAQUIN) 500 MG tablet Take 1 Tab by mouth daily. (Patient no t taking: Reported on 01/22/2019) 14 Tab 0 metoprolol (LOPRESSOR) 25 MG tablet TAKE 1/2 (ONE-HALF) TABLET BY MOUTH TWIC E DAILY 30 Tab 3 metronidazole (FLAGYL) 500 MG tablet Take 500 mg by mouth two times daily. pantoprazole (PROTONIX) 40 MG tablet Take 40 mg by mouth two times daily. predniSONE (DELTASONE) 20 MG tablet probenecid (BENEMID) 500 MG tablet as needed. rosuvastatin (CRESTOR) 10 MG tablet TAKE 1 TABLET BY MOUTH ONCE DAILY 30 Tab 6 spironolactone (ALDACTONE) 25 MG tablet TAKE 1 TABLET BY MOUTH ONCE DAILY 30 Tab 6 Tamsulosin HCl 0.4 MG CAPS Take 0.4 mg by mouth daily. warfarin (COUMADIN) 5 MG tablet Take 1 Tab by mouth daily. 30 Tab 5 warfarin (COUMADIN) 7.5 MG tablet Take 1 Tab by mouth daily. 30 Tab 5 No current facility-administered medications for this visit. Allergies No Known Allergies Social History Former smoker Ocasionally drinks alcohol Physical Examination Vitals: Vital Signs Height: 6' (182.9 cm) Weight - Scale: 235 lb (106.6 kg) Pulse: 74 Respirations: 16 BP: 115/76 Physical Exam Constitutional: He appears healthy. Neck: No JVD present. Pulmonary/Chest: Breath sounds normal. He has no wheezes. He has no rales. He ex hibits no tenderness. Abdominal: Soft. Bowel sounds are normal. Musculoskeletal: Normal range of motion. Neurological: He is alert and oriented to person, place, and time. Skin: Skin is warm. Extremities: +1 pitting edema B/L up to knee. Laboratory Data Lab Results Component Value Date WBC 10.3 01/06/2019 HGB 14.9 01/06/2019 HCT 43.6 01/06/2019 MCV 94.2 (H) 01/06/2019 PLT 206 01/06/2019 Lab Results Component Value Date NA 142 12/28/2018 Lab Results Component Value Date K 4.8 12/28/2018 Lab Results Component Value Date BUN 8 12/28/2018 Lab Results Component Value Date CREATININE 1.00 12/28/2018 Lab Results Component Value Date ALT 16 11/23/2017 AST 13 11/23/2017 ALKPHOS 87 11/23/2017 BILITOT 0.2 11/23/2017 Lab Results Component Value Date CHOL 195 11/23/2017 LDLCALC 117 (H) 11/23/2017 TRIG 196 (H) 11/23/2017 No results found for: BNP EKG :Extensive anterior-lateral and Old Inferior infarct MRI cardiac without and with IV contrast 12/06/2017: IMPRESSION: The constellation of findings is most suggestive of a dilated, ische lul cardiomyopathy with normal viability in present all of the arterial territories except for the apical septal, apical inferior and LV apex. 1. Mildly dilated left ventricle with mildly reduced left ventricular systolic f unction. (LVEF: 43%, LVEDVi: 106 cc/m2). There are regional wall motion abnormalities involving, the apical septal, apical inferior and LV a pex, which are thinned and akinetic. 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 Apical left ventricular thrombus is identified, measu ring 3.0 x 1.9 cm. 2. Delayed-enhancement imaging reveals delayed-enhancement in an ischemic patter n.Specifically, transmural pattern of DHE involving the apical inferior, apical septal, and LV apex. Subendocardial pattern of delay ed enhancement involving the apical anterior and lateral altamirano. Scar score=14/68. Transmurality index=3/17. 3. Normal right ventricular size and systolic function, on qualitative assessmen t. Mild biatrial enlargement. 4. No significant valvular abnormalities. [facility] Post OP Findings 08/09/2018: Coronary Comments LMCA OK LAD 90% stenosis Equipment Guide catheter: 7 Fr AL2 Guidewire: 0.014" Runthrough Pre dilatation balloon: Emerge 1.5 x 15 Post dilatation balloon: n/a Stent Implanted: Location of Stent Synergy 2.25 x 20 LAD, Mid Synergy 2.5 x 16 LAD, Proximal 12/18/2017: Dominance: Right Left Main No angiographic evidence of coronary stenosis LAD - Proximal diffuse 50 -60 % stenosis, followed by 100% NOVELTY WORKER mid LAD: Distally CC2 collateral from D2 and Acute marginal branch of RV from RCA.of - Large D2 with 30% ostial stenosis. LCx No angiographic evidence of coronary stenosis with only a mild 30% ostial OM 1 plaque; Distal LCx gives off collaterals to rPDA filling the distal RCA. RCA Proximal segment without angiographic CAD, gives off a large acute marginal branch which gives collaterals to fill the distal LAD after the NOVELTY WORKER, followed by 90% stenosis of mid-RCA, then 60 - 70% diffuse stenosis of the distal RCA, the PDA also fills via collaterals from LCx Left Heart Catheterization: LVEDP: 12 mmHg Left Ventricle Pressure: 105/6/11 mmHg. Central Aortic Pressure: 108/65/82 mmHg , Oxygen saturation: 97% There was no gradient across the aortic valve Right Heart Catheterization Findings: Hemoglobin 11.90 g/dL PRESSURES RA (a/v/mean) 9/7/7 mmHg RV (systolic/EDP) 20/2/5 mmHg PA (systolic/diastolic/mean) 27/10/17 mmHg PCWP (a/v/mean) 10/10/9 mmHg Central aortic pressure 108/65/82 mmHg LV systolic pressure 105/6 mmHg LVEDP 11 mmHg SATURATIONS PA 74 % Ao 97% FLOW CALCULATIONS CO by Jamal (Qs) 6.45 L/min CI by Jamal 2.76 L/min/m2 RESISTANCE CALCULATIONS Pulmonary vascular resistance (mPAP-LAP)/Qp 1.24 Wood units Transpulmonic gradient (mPAP PCWP) 6 mmHg Conclusions: Two Vessel CAD Normal right sided pressures ECHO 11/07/2018: 1. Left ventricular chamber size (by vol index) is mildly enlarged. Mild concentric LV hypertrophy. All Apical segment and LV apex are akinetic. The other segments have normal contractility. LVEF by quantitative assessment is mildly reduced (40-44%). Grade 1 diastolic dysfunctio n (impaired relaxation and low-normal LA pressure). LA size is moderately enlarged (42-48 ml/m2). - A mural mass is present in the following LV location(s): apex. Measures 3.0 x 1.2 cm. 2. RV chamber size is normal. Global RV systolic function is normal. Unable to estimate peak systolic PA pressure; inadequate TR velocity signal. 3. No significant valvular abnormalities. In comparison with the prior exam on 04/12/2018 no significant interval change. 04/12/2018: Left ventricular chamber size (by vol index) is mildly enlarged (male - LVED vol - 75-89 ml/m2) with no evidence of LV hypertrophy. There is apical inferior, apical anterior and apical septal akinesis. Global LV systolic function is moderately reduced. LVEF by quantitative assessment is moderately reduced (40%). A mural thrombus is present in the following LV location(s): [place]. (Size is 1.0 x 1.9 cm). In comparison with the prior exam on 02/20/2018, LV apical thrombus appears unch anged in size. LV systolic function is similar 01/26/2018: Left ventricular chamber size (by vol index) is mildly enlarged (male - LVED vol - 75-89 ml/m2). Dyskinesis of the apex and apical segments. LVEF by quantitative assessment is mildly reduced (45%). Grade 1 diastolic dysfunction (impaired relaxation and low-normal LA pressure). There is a 1.6 cm x 2.7 cm apical thrombus seen. In comparison with the prior exam on 11/29/2017 the following changes are noted: the LVEF has improved from 30-34% to approximately 45%. Apical thrombus is still visualized with minimal change in size. Assessment and Plan 62 y.o male with a hx of staghorn calculus pending surgical removal who presents today for cardiology follow up prior to surgery s/p Echo. 1. LV thrombus with Ischemic CMP - LVEF per MRI at 43%: Continue AC. INR have be en therapeutic. Obstructive CAD: History of PCI ofRCA x 3with IABP insertion on 04/26/2018 and status post PCI to mid LAD (Synergy 2.25 x 20 mm) and proximal LAD (Synergy 2.5 x 16 mm) stents on 08/09/[address] Parikh. Continue ASA, Brilinta, and stat in. Follow up in 6 months with cardiac MRI - to reassess LV clot. 2. Surgical Staghorn calculus Removal: Resolved Cardiac Clearance for surgical staghorn calculus removal: Joss Mcleod re wendy at intermediate risk for non-cardiovascular surgery from cardiac standpoin t Successfully removed staghorn calculus. No further episodes of bleeding. 3. H-Pylori Infection Patient on triple therapy for H Pylori. Amoxicillin, metronidazole, pantoprazole , and bismuth subsalicylate. recently had infection as well. Patient report s well water at home. INR check q 3 days while on antibiotics. 4. Future colonoscopy per patient Cardiac Clearance for colonoscopy: Joss Mcleod remains at intermediate r isk for non-cardiovascular surgery from cardiac standpoint Dr Law Carlton MD, FRACP, [facility] Advanced Cardiovascular Chisel GrinderTourist Cabin Keepernitroglycerin nitrator operator batch, Section of Cardiology [facility] Answering service: [phone] documented in this encounter Plan of Treatment Care Team Description Date Type Specialty 04/11/2019 Ancillary Urology Procedure Reagan Cooper MD [address] [place] [address] 04/11/2019 Office Visit Urology Law Carlton MD [address] [place] [address] 07/23/2019 Office Visit Cardiology Health Maintenance Due Date Last Done Comments COLON CANCER SCREENIN1957 COLONOSCOPY BMI FOLLOW UP PLAN 11/27/1975 HEPATITIS C SCREENING 11/27/1975 HIV SCREENING 11/27/1975 FLU VACCINE > 6 MONTHS 12/06/2018 TETANUS SHOT (ADULT) 04/26/2020 04/26/2010 documented as of this encounter Results Not on filedocumented in this encounter Visit Diagnoses Diagnosis LV (left ventricular) mural thrombus without [place] - Primary Thrombus Embolism and thrombosis of unspecified site Coronary artery disease involving [place]ut heart without angina pectoris, unspecified vessel or lesion type Hx of blood clots Personal history of venous thrombosis and embolism Apical mural thrombus Acute myocardial infarction of other anterior wall, episode of care unspecified documented in this encounter Insurance Type Payer Benefit Subscriber ID Effective Phone Address Plan / Dates Group [facility] - xxxxxxxxxxx 2018-P [address] [address] documented as of this encounter
[2019-03-19 08:33] LABS: INR 1.16; PROTHROMBIN TIME 15.4 seconds (11.9-14.5)
[2019-03-19 11:00] VITALS: BP 111/74
== END | disposition home or self-care (01) ==
LOC: OR 06:57
PROVIDERS: ATTEND Internal Medicine Gastroenterology
DX: K29.70 Gastritis, unspecified, without bleeding (principal); K21.9 Gastro-esophageal reflux disease without esophagitis; K44.9 Diaphragmatic hernia without obstruction or gangrene; B96.81 Helicobacter pylori [H. pylori] as the cause of diseases classified elsewhere; K59.00 Constipation, unspecified; I11.0 Hypertensive heart disease with heart failure; I50.9 Heart failure, unspecified; I25.10 Atherosclerotic heart disease of native coronary artery without angina pectoris; N20.0 Calculus of kidney; I25.2 Old myocardial infarction; R00.1 Bradycardia, unspecified; Z01.810 Encounter for preprocedural cardiovascular examination; Z01.812 Encounter for preprocedural laboratory examination; Z79.01 Long term (current) use of anticoagulants; Z79.82 Long term (current) use of aspirin; Z68.31 Body mass index [BMI] 31.0-31.9, adult; Z95.5 Presence of coronary angioplasty implant and graft
CPT/HCPCS: 36415; 43239; 45378; 85025; 85610; 85730; 93005; J2250; J3010